=== PATIENT | male | born 1955 | race Caucasian/White ===

== ENCOUNTER → 2020-02-21 15:20 | Outpatient (CLI) | payer MEDICARE, SELFPAY ==
--- NOTE | 2020-02-21 15:29 | XR_ITS ---
PROCEDURE: XR LUMBAR SPINE MIN 4V CLINICAL INDICATION: DEGENERATIVE LUMBAR SPINAL STENOSIS COMPARISON: No exams were available for comparison FINDINGS: There is mild multilevel degenerative change with degenerative disc disease at the T12-L1 L1-L2 L3-L4 L4-5 and L5-S1. There is 2 mm anterolisthesis L3 on L4. There are small anterior osteophytes at multiple levels. There are facet arthritic changes at L4-L5 and S1. The SI joints have an unremarkable appearance. No lytic or blastic change. No acute fracture. There are mild osteoarthritic changes of the hips as well. Other findings:None. IMPRESSION: Degenerative changes as described above Dictated by: Justo Mayer MD 02/21/2020 16:35 Justo Mayre MD in [place] 02/21/2020 16:35
== END ==
PROVIDERS: PCP Family Medicine; Visit Provider Family Medicine
DX: M48.061 Spinal stenosis, lumbar region without neurogenic claudication (principal); M54.16 Radiculopathy, lumbar region; R29.898 Other symptoms and signs involving the musculoskeletal system
CPT/HCPCS: 72110

== ENCOUNTER → 2020-02-29 08:53 | Outpatient (CLI) | payer MEDICARE, BC, SELFPAY ==
--- NOTE | 2020-02-29 | MR_ITS ---
PROCEDURE: MR LUMBAR SPINE WO CON CLINICAL INDICATION: DDD WITH LBP PT C/O LBP WITH RT LEG SCIATICA AND WEAKNESS OF RT FOOT X 1 MONTH . PT DENIES INJURY OR TRAUMA AND HAS NO HX OF LUMBAR SURGERY. PT STATES SYMPTOMS ARE GETTING WORSE AND HE IS HAVING DIFFICULTY WALKING. COMPARISON: CR XR LUMBAR SPINE MIN 4V from 02/21/2020 TECHNIQUE: Standard multiplanar multiecho sequences are performed without contrast. 3-D MIP and myelographic images are also rendered and reviewed FINDINGS: There is normal alignment. The spinal cord ends the T12-L1 level. L1-L2: Mild degenerative disc disease with minimal bulging disc and mild facet and ligamentum hypertrophy L2-L3: Facet and ligamentum hypertrophy with mild left lateral recess narrowing and [id number] left foraminal narrowing. L3-L4: Degenerative disc disease with bulging disc slightly eccentric toward the left with severe facet and ligamentum hypertrophy and severe bilateral lateral recess narrowing slightly greater on the left. There is moderate right foraminal narrowing and moderate to severe left foraminal narrowing. There is canal stenosis. L4-5: Degenerative disc disease with bulging disc with minimal central disc protrusion with moderate to severe facet and ligamentum hypertrophy with moderate bilateral lateral recess and foraminal narrowing and borderline narrowing of the canal L5-S1: Degenerative disc disease with mild bulging disc with facet and ligamentum hypertrophy. No extruded herniated disc evident. There is increased T1 and increased T2 signal of the sacrum isointense on the STIR images which is felt to be due to yellow marrow replacement. IMPRESSION: 1. Multilevel lumbar spondylosis with degenerative disc disease bulging disc and facet and ligamentum hypertrophy. Please see above for detailed description at each level. 2. L3-L4: Degenerative disc disease with bulging disc slightly eccentric toward the left with severe facet and ligamentum hypertrophy and severe bilateral lateral recess narrowing slightly greater on the left. There is moderate right foraminal narrowing and moderate to severe left foraminal narrowing. There is canal stenosis. 3. L4-5: Degenerative disc disease with bulging disc with minimal central disc protrusion with moderate to severe facet and ligamentum hypertrophy with moderate bilateral lateral recess and foraminal narrowing and borderline narrowing of the canal Dictated by: Justo Mayer MD 03/01/2020 11:05 Justo Mayer MD in [place] 03/01/2020 11:05
--- NOTE | 2020-02-29 08:57 | US_ITS ---
PROCEDURE: US ABD. AORTA SCREENING CLINICAL INDICATION: AAA COMPARISON: No exams were available for comparison FINDINGS: No evidence of aortic aneurysm. Proximal common iliacs are unremarkable. IMPRESSION: No evidence of abdominal aortic aneurysm Dictated by: Justo Mayer MD 02/29/2020 15:56 Justo Mayer MD in [place] 02/29/2020 15:56
== END ==
PROVIDERS: PCP Family Medicine; Visit Provider Family Medicine
DX: Z13.6 Encounter for screening for cardiovascular disorders (principal); M48.061 Spinal stenosis, lumbar region without neurogenic claudication; M54.16 Radiculopathy, lumbar region
CPT/HCPCS: 72148; 76376; 76705

== ENCOUNTER 2020-03-12 13:22 | Emergency (ER) | payer MEDICARE, BC, SELFPAY ==
[2020-03-12 13:50] VITALS: BP 167/87; PULSE 85; RESP 14; TEMP 37.1; O2SAT 92; BMI 36.9
--- NOTE | 2020-03-12 14:11 | HMH.EDUTC ---
[facility] [place] Disposition Clinical Impression: Exposure to COVID-19 virus, Bronchitis Disposition: Home, Self-Care Condition on Discharge: Good Instructions: Preventing the Spread of Coronavirus Discharge Instructions Additional Instructions: Drink plenty of fluids. Take tylenol or ibuprofen for pain or fever. Take the medications as directed. Follow up with your regular doctor. GO TO THE ER FOR ANY WORSENING SYMPTOMS Prescriptions: Benzonatate [Tessalon Perle 100mg Cap] 100 mg PO TIDP PRN #30 cap PRN Reason: Cough Transmission Status: Received by [id number] Azithromycin [Z-Francois 250mg Tab*] 250 mg PO UD DOSE PK #6 tab Transmission Status: Received by [id number] Referrals: Sumanth Wilson MD [Primary Care Provider] - Medical Decision Making - Medical Records Medical records reviewed: No: I reviewed the patient's medical records. - Naveed Inquiry Pt receiving controlled substance: No Vital Signs: 03/12/20 13:50 03/12/20 14:15 Temperature 98.7 F 98.7 F Temperature Source Oral Pulse Rate 85 Pulse Rate [Right Brachial] 85 Respiratory Rate 14 14 Blood Pressure 167/87 H Blood Pressure [Right Arm] 167/87 H Blood Pressure Mean [Right Arm] 113 Blood Pressure Source [Right Arm] Automatic Cuff Blood Pressure Position [Right Arm] Sitting 02 Sat by Pulse Oximetry 92 L Oxygen Delivery Method Room Air Orders (Tests/Meds): ORDERS Category Date Time Status Covid-19 Nasal PCR Sendout [facility] Routine Lab 03/12/20 13:30 Received [facility] [place] HPI - General Stated complaint: congestion, wants covid test Time Seen by Provider: 03/12/20 14:11 Mode of Arrival: Ambulatory Source of Information: Patient Limitations: No Limitations Description of Symptoms (Recalled from Triage Doc. by RN): PATIENT REQUESTING COVID TEST D/T EXPOSURE; C/O CONGESTION HEENT Symptoms (Recalled from RN notes): Yes Resp Symptoms (Recalled from RN notes): No Skin Symptoms (Recalled from RN notes): No MS Symptoms (Recalled from RN notes): No Functional Status (Recalled from RN notes): WNL - History of Present Illness Provider Complaint: He c/o 2 days of sinus and chest congestion. He denies any fever/chills/body aches. - Related Data Previous Rx's Medication Instructions Recorded Azithromycin [Z-Francois 250mg Tab*] 250 mg PO UD DOSE PK #6 tab 03/12/20 Benzonatate [Tessalon Perle 100mg 100 mg PO TIDP PRN #30 cap 03/12/20 Cap] Allergies Allergy/AdvReac Type Severity Reaction Status Date / Time No Known Allergies Allergy Verified 03/12/20 14:08 - Worker's Comp Is this a Worker's Comp case?: No H History - Hepatitis A Screen Drug use history?: No High risk sexual behaviors?: No History of sexually transmitted infection?: No Currently employed?: No Childcare worker?: No Do you have indoor plumbing?: Yes Do you have electricity?: Yes Attestation statement:: This patient has been screened for Hepatitis A risk factors. I have reviewed the patient's past medical history: Yes - Social History Alcohol Intake: never Occupational Status: other ROS Obtained: Yes All systems reviewed & no additional complaints - Constitutional Constitutional: Reports system reviewed and no additional complaints, except as docu - Eyes Eyes: Reports system reviewed and no additional complaints, except as docu - ENT Ears, Nose, Mouth, and Throat: Reports system reviewed and no additional complaints, except as docu - Cardiovascular Cardiovascular: Reports system reviewed and no additional complaints, except as docu - Respiratory Respiratory: Yes system reviewed and no additional complaints, except as docu - Gastrointestinal Gastrointestingal: Reports: system reviewed and no additional complaints, except as docu Physical Exam - General General appearance: alert, in no apparent distress - Head Head exam: atraumatic, normocephalic, normal inspection - Eye Eye exam: Present: normal appe
[2020-03-12 14:15] VITALS: BP 167/87; PULSE 85; RESP 14; TEMP 37.1; O2SAT 92
[2020-03-13 14:09] LABS: Covid-19 Nasal PCR Sendout Lex POSITIVE
--- NOTE | 2020-03-13 14:46 | PC.NURSE ---
PATIENT NOTIFIED OF POSITIVE COVID TEST AT THIS TIME
== END 2020-03-12 14:22 | disposition home or self-care (01) ==
PROVIDERS: Emergency Provider Nurse Practitioner Family; PCP Family Medicine
DX: U07.1 COVID-19 (principal); E78.5 Hyperlipidemia, unspecified; I10 Essential (primary) hypertension
CPT/HCPCS: G0463; 99201; U0004

== ENCOUNTER 2020-09-27 13:50 | Outpatient (CLI) | payer MEDICARE, BC, SELFPAY ==
[2020-09-27 13:57] VITALS: BMI 35.2
[2020-09-27 14:15] LABS: Basophils # 0.1 K/mm3 (0-0.2); Basophils % 0.6 % (0.1-2.0); Eosinophils # 0.4 K/mm3 (0.0-0.4); Eosinophils % 3.2 % (0.1-12.0); Hematocrit 44.3 % (42.0-52.0); Hemoglobin 14.5 g/dL (14.1-18.0); Lymphocytes # 2.7 K/mm3 (0.7-4.5); Lymphocytes % 25.1 % (10-50); Mean Corpuscular HGB Conc 32.8 g/dL (31.8-35.4); Mean Corpuscular Hemoglobin 29.9 pg (27.0-31.2); Mean Corpuscular Volume 91.2 fl (80-94); Mean Platelet Volume 7.5 fl (7.4-10.4); Monocytes # 0.6 K/mm3 (0.1-1.0); Monocytes % 5.6 % (1.7-9.3); Neutrophils # 7.2 K/mm3 (1.8-7.8); Neutrophils % 65.6 % (37.0-80.0); Platelet Count 262 K/mm3 (142-424); Red Blood Count 4.86 M/mm3 (4.60-6.20); Red Cell Distribution Width 13.1 % (11.5-17.5); White Blood Count 10.9 K/mm3 (4.8-10.8)
[2020-09-27 14:35] VITALS: BP 196/96; PULSE 76; RESP 20
[2020-09-27 14:52] VITALS: BP 195/86; PULSE 76; RESP 20
[2020-09-27 15:11] LABS: Ferritin 613 ng/ml (17.9-464)
== END 2020-09-27 14:52 | disposition home or self-care (01) ==
LOC: INF 13:56
PROVIDERS: Visit Provider Family Medicine
DX: E83.110 Hereditary hemochromatosis (principal)
CPT/HCPCS: 82728; 85025; 99195

== ENCOUNTER 2020-10-04 13:52 | Outpatient (CLI) | payer MEDICARE, BC, SELFPAY ==
[2020-10-04 13:57] VITALS: BMI 35.2
[2020-10-04 14:25] LABS: Basophils # 0.1 K/mm3 (0-0.2); Basophils % 1.1 % (0.1-2.0); Eosinophils # 0.4 K/mm3 (0.0-0.4); Eosinophils % 3.4 % (0.1-12.0); Hematocrit 44.5 % (42.0-52.0); Hemoglobin 15.3 g/dL (14.1-18.0); Lymphocytes # 2.9 K/mm3 (0.7-4.5); Lymphocytes % 26.8 % (10-50); Mean Corpuscular HGB Conc 34.5 g/dL (31.8-35.4); Mean Corpuscular Hemoglobin 30.6 pg (27.0-31.2); Mean Corpuscular Volume 88.9 fl (80-94); Mean Platelet Volume 7.8 fl (7.4-10.4); Monocytes # 0.7 K/mm3 (0.1-1.0); Monocytes % 6.6 % (1.7-9.3); Neutrophils # 6.7 K/mm3 (1.8-7.8); Neutrophils % 62.2 % (37.0-80.0); Platelet Count 239 K/mm3 (142-424); Red Cell Distribution Width 13.6 % (11.5-17.5); White Blood Count 10.7 K/mm3 (4.8-10.8)
--- NOTE | 2020-10-04 14:33 | PC.NURSE ---
1411- lab at bedside drawing labs
--- NOTE | 2020-10-04 14:33 | PC.NURSE ---
1433- called lab for phlebotomy
[2020-10-04 14:37] VITALS: BP 169/96; PULSE 67; RESP 17; TEMP 36.8; O2SAT 97
[2020-10-04 15:06] VITALS: BP 167/84; PULSE 80
[2020-10-04 15:06] LABS: Ferritin 844 ng/ml (17.9-464)
== END 2020-10-04 15:10 | disposition home or self-care (01) ==
LOC: INF 13:52
PROVIDERS: Visit Provider Family Medicine
DX: E83.110 Hereditary hemochromatosis (principal)
CPT/HCPCS: 36415; 82728; 85025; 99195

== ENCOUNTER 2020-10-11 13:40 | Outpatient (CLI) | payer MEDICARE, BC, SELFPAY ==
[2020-10-11 13:47] VITALS: BMI 35.2
[2020-10-11 14:04] LABS: Basophils # 0.1 K/mm3 (0-0.2); Basophils % 0.7 % (0.1-2.0); Eosinophils # 0.3 K/mm3 (0.0-0.4); Eosinophils % 3.6 % (0.1-12.0); Hematocrit 41.2 % (42.0-52.0); Hemoglobin 13.9 g/dL (14.1-18.0); Lymphocytes # 2.5 K/mm3 (0.7-4.5); Lymphocytes % 25.9 % (10-50); Mean Corpuscular HGB Conc 33.8 g/dL (31.8-35.4); Mean Corpuscular Hemoglobin 30.2 pg (27.0-31.2); Mean Corpuscular Volume 89.2 fl (80-94); Mean Platelet Volume 7.6 fl (7.4-10.4); Monocytes # 0.6 K/mm3 (0.1-1.0); Monocytes % 6.1 % (1.7-9.3); Neutrophils # 6.1 K/mm3 (1.8-7.8); Neutrophils % 63.7 % (37.0-80.0); Platelet Count 224 K/mm3 (142-424); Red Blood Count 4.62 M/mm3 (4.60-6.20); Red Cell Distribution Width 13.1 % (11.5-17.5); White Blood Count 9.5 K/mm3 (4.8-10.8)
[2020-10-11 14:15] VITALS: BP 160/91; PULSE 74; RESP 17; O2SAT 97
[2020-10-11 14:54] LABS: Ferritin 726 ng/ml (17.9-464)
[2020-10-11 14:55] VITALS: BP 157/93; PULSE 76; RESP 17; O2SAT 97
== END 2020-10-11 14:59 | disposition home or self-care (01) ==
LOC: INF 13:46
PROVIDERS: PCP Family Medicine; Visit Provider Family Medicine
DX: E83.110 Hereditary hemochromatosis (principal)
CPT/HCPCS: 36415; 82728; 85025; 99195

== ENCOUNTER 2020-10-17 09:50 | Outpatient (CLI) | payer MEDICARE, BC, SELFPAY ==
[2020-10-17 09:53] VITALS: BMI 35.2
[2020-10-17 10:12] LABS: Hematocrit 41.5 % (42.0-52.0); Hemoglobin 14.6 g/dL (14.1-18.0)
[2020-10-17 10:58] LABS: Ferritin 841 ng/ml (17.9-464)
== END 2020-10-17 11:00 | disposition home or self-care (01) ==
LOC: INF 09:53
PROVIDERS: Visit Provider Family Medicine
DX: E83.110 Hereditary hemochromatosis (principal)
CPT/HCPCS: 36415; 82728; 85014; 85018; 99195

== ENCOUNTER 2020-10-24 12:25 | Outpatient (CLI) | payer MEDICARE, BC, SELFPAY ==
[2020-10-24 12:27] VITALS: BMI 35.2
[2020-10-24 12:47] LABS: Basophils # 0.1 K/mm3 (0-0.2); Basophils % 0.8 % (0.1-2.0); Eosinophils # 0.4 K/mm3 (0.0-0.4); Eosinophils % 3.1 % (0.1-12.0); Hematocrit 43.3 % (42.0-52.0); Hemoglobin 15.1 g/dL (14.1-18.0); Lymphocytes # 2.4 K/mm3 (0.7-4.5); Lymphocytes % 21.4 % (10-50); Mean Corpuscular HGB Conc 34.9 g/dL (31.8-35.4); Mean Corpuscular Hemoglobin 30.9 pg (27.0-31.2); Mean Corpuscular Volume 88.5 fl (80-94); Mean Platelet Volume 8.1 fl (7.4-10.4); Monocytes # 0.6 K/mm3 (0.1-1.0); Monocytes % 5.7 % (1.7-9.3); Neutrophils # 7.7 K/mm3 (1.8-7.8); Neutrophils % 69.1 % (37.0-80.0); Platelet Count 252 K/mm3 (142-424); Red Blood Count 4.89 M/mm3 (4.60-6.20); Red Cell Distribution Width 14.6 % (11.5-17.5); White Blood Count 11.2 K/mm3 (4.8-10.8)
[2020-10-24 13:45] LABS: Ferritin 765 ng/ml (17.9-464)
[2020-10-24 14:45] VITALS: BP 150/84; PULSE 111; RESP 18
== END 2020-10-24 14:45 | disposition home or self-care (01) ==
LOC: INF 12:29
PROVIDERS: Visit Provider Family Medicine
DX: E83.110 Hereditary hemochromatosis (principal)
CPT/HCPCS: 36415; 82728; 85025; 99195

== ENCOUNTER 2020-10-31 12:49 | Outpatient (CLI) | payer MEDICARE, BC, SELFPAY ==
[2020-10-31 12:52] VITALS: BMI 35.2
[2020-10-31 13:06] LABS: Basophils # 0.1 K/mm3 (0-0.2); Basophils % 0.8 % (0.1-2.0); Eosinophils # 0.3 K/mm3 (0.0-0.4); Eosinophils % 2.6 % (0.1-12.0); Hematocrit 42.3 % (42.0-52.0); Hemoglobin 14.8 g/dL (14.1-18.0); Lymphocytes # 2.6 K/mm3 (0.7-4.5); Mean Corpuscular Hemoglobin 30.9 pg (27.0-31.2); Mean Corpuscular Volume 88.4 fl (80-94); Mean Platelet Volume 8.2 fl (7.4-10.4); Monocytes # 0.8 K/mm3 (0.1-1.0); Monocytes % 7.1 % (1.7-9.3); Neutrophils # 7.1 K/mm3 (1.8-7.8); Neutrophils % 65.5 % (37.0-80.0); Platelet Count 276 K/mm3 (142-424); Red Blood Count 4.78 M/mm3 (4.60-6.20); Red Cell Distribution Width 14.6 % (11.5-17.5); White Blood Count 10.8 K/mm3 (4.8-10.8)
[2020-10-31 13:37] VITALS: BP 146/87; PULSE 98; RESP 18; O2SAT 97
[2020-10-31 13:57] LABS: Ferritin 572 ng/ml (17.9-464)
[2020-10-31 14:09] VITALS: BP 154/85; PULSE 97; RESP 18
== END 2020-10-31 14:09 | disposition home or self-care (01) ==
LOC: INF 12:49
PROVIDERS: Visit Provider Family Medicine
DX: E83.110 Hereditary hemochromatosis (principal)
CPT/HCPCS: 82728; 85025; 99195

== ENCOUNTER 2020-11-07 12:49 | Outpatient (CLI) | payer MEDICARE, BC, SELFPAY ==
[2020-11-07 12:59] VITALS: BMI 35.2
[2020-11-07 13:18] LABS: Basophils # 0.1 K/mm3 (0-0.2); Eosinophils # 0.3 K/mm3 (0.0-0.4); Eosinophils % 3.3 % (0.1-12.0); Hematocrit 39.6 % (42.0-52.0); Hemoglobin 13.8 g/dL (14.1-18.0); Lymphocytes # 2.8 K/mm3 (0.7-4.5); Lymphocytes % 30.3 % (10-50); Mean Corpuscular HGB Conc 34.9 g/dL (31.8-35.4); Mean Corpuscular Hemoglobin 31.1 pg (27.0-31.2); Mean Corpuscular Volume 89.3 fl (80-94); Mean Platelet Volume 8.4 fl (7.4-10.4); Monocytes # 0.5 K/mm3 (0.1-1.0); Monocytes % 5.1 % (1.7-9.3); Neutrophils # 5.5 K/mm3 (1.8-7.8); Neutrophils % 60.2 % (37.0-80.0); Platelet Count 270 K/mm3 (142-424); Red Blood Count 4.44 M/mm3 (4.60-6.20); White Blood Count 9.1 K/mm3 (4.8-10.8)
[2020-11-07 13:50] VITALS: BP 174/62; PULSE 77; RESP 18
[2020-11-07 14:09] LABS: Ferritin 510 ng/ml (17.9-464)
[2020-11-07 14:12] VITALS: BP 157/77; PULSE 79; RESP 18
== END 2020-11-07 14:12 | disposition home or self-care (01) ==
LOC: INF 12:49
PROVIDERS: Visit Provider Family Medicine
DX: E83.110 Hereditary hemochromatosis (principal)
CPT/HCPCS: 36415; 82728; 85025; 99195

== ENCOUNTER 2020-11-14 12:44 | Outpatient (CLI) | payer MEDICARE, BC, SELFPAY ==
[2020-11-14 12:45] VITALS: BMI 35.2
[2020-11-14 13:08] LABS: Basophils # 0.2 K/mm3 (0-0.2); Basophils % 1.5 % (0.1-2.0); Eosinophils # 0.3 K/mm3 (0.0-0.4); Eosinophils % 2.9 % (0.1-12.0); Hematocrit 38.6 % (42.0-52.0); Hemoglobin 13.6 g/dL (14.1-18.0); Lymphocytes # 2.6 K/mm3 (0.7-4.5); Lymphocytes % 25.4 % (10-50); Mean Corpuscular HGB Conc 35.2 g/dL (31.8-35.4); Mean Corpuscular Hemoglobin 31.2 pg (27.0-31.2); Mean Corpuscular Volume 88.8 fl (80-94); Mean Platelet Volume 7.6 fl (7.4-10.4); Monocytes # 0.6 K/mm3 (0.1-1.0); Monocytes % 6.1 % (1.7-9.3); Neutrophils # 6.7 K/mm3 (1.8-7.8); Neutrophils % 64.1 % (37.0-80.0); Platelet Count 295 K/mm3 (142-424); Red Blood Count 4.35 M/mm3 (4.60-6.20); Red Cell Distribution Width 13.8 % (11.5-17.5); White Blood Count 10.4 K/mm3 (4.8-10.8)
[2020-11-14 13:33] VITALS: BP 162/79; PULSE 81; RESP 18; TEMP 36.8; O2SAT 97
[2020-11-14 13:48] VITALS: BP 171/86; PULSE 86; RESP 18; O2SAT 97
[2020-11-14 13:57] LABS: Ferritin 509 ng/ml (17.9-464)
== END 2020-11-14 13:48 | disposition home or self-care (01) ==
LOC: INF 12:44
PROVIDERS: Visit Provider Family Medicine
DX: E83.110 Hereditary hemochromatosis (principal)
CPT/HCPCS: 36415; 82728; 85025; 99195

== ENCOUNTER 2020-11-21 12:40 | Outpatient (CLI) | payer MEDICARE, BC, SELFPAY ==
[2020-11-21 12:47] VITALS: BMI 35.2
[2020-11-21 13:45] LABS: Basophils # 0.1 K/mm3 (0-0.2); Basophils % 0.9 % (0.1-2.0); Eosinophils # 0.3 K/mm3 (0.0-0.4); Eosinophils % 2.8 % (0.1-12.0); Hematocrit 40.1 % (42.0-52.0); Hemoglobin 13.7 g/dL (14.1-18.0); Lymphocytes # 2.7 K/mm3 (0.7-4.5); Lymphocytes % 25.3 % (10-50); Mean Corpuscular HGB Conc 34.2 g/dL (31.8-35.4); Mean Corpuscular Volume 90.4 fl (80-94); Monocytes # 0.6 K/mm3 (0.1-1.0); Monocytes % 5.2 % (1.7-9.3); Neutrophils % 65.8 % (37.0-80.0); Platelet Count 258 K/mm3 (142-424); Red Blood Count 4.44 M/mm3 (4.60-6.20); Red Cell Distribution Width 14.1 % (11.5-17.5); White Blood Count 10.7 K/mm3 (4.8-10.8)
[2020-11-21 14:12] LABS: Ferritin 477 ng/ml (17.9-464)
== END 2020-11-21 14:30 | disposition home or self-care (01) ==
LOC: INF 12:45
PROVIDERS: Visit Provider Family Medicine
DX: E83.110 Hereditary hemochromatosis (principal)
CPT/HCPCS: 36415; 82728; 85025; 99195

== ENCOUNTER 2020-11-28 12:47 | Outpatient (CLI) | payer MEDICARE, BC, SELFPAY ==
[2020-11-28 12:47] VITALS: BMI 35.2
[2020-11-28 13:14] LABS: Basophils # 0.1 K/mm3 (0-0.2); Basophils % 0.8 % (0.1-2.0); Eosinophils # 0.4 K/mm3 (0.0-0.4); Eosinophils % 3.9 % (0.1-12.0); Hematocrit 39.3 % (42.0-52.0); Hemoglobin 13.8 g/dL (14.1-18.0); Lymphocytes # 2.7 K/mm3 (0.7-4.5); Lymphocytes % 26.8 % (10-50); Mean Corpuscular Hemoglobin 30.9 pg (27.0-31.2); Mean Corpuscular Volume 88.2 fl (80-94); Mean Platelet Volume 7.9 fl (7.4-10.4); Monocytes # 0.5 K/mm3 (0.1-1.0); Monocytes % 5.2 % (1.7-9.3); Neutrophils # 6.3 K/mm3 (1.8-7.8); Neutrophils % 63.3 % (37.0-80.0); Platelet Count 255 K/mm3 (142-424); Red Blood Count 4.45 M/mm3 (4.60-6.20); Red Cell Distribution Width 14.2 % (11.5-17.5)
[2020-11-28 13:58] LABS: Ferritin 358 ng/ml (17.9-464)
== END 2020-11-28 14:06 | disposition home or self-care (01) ==
LOC: INF 12:47
PROVIDERS: Visit Provider Family Medicine
DX: E83.110 Hereditary hemochromatosis (principal)
CPT/HCPCS: 82728; 85025; 99195

== ENCOUNTER 2020-12-05 12:44 | Outpatient (CLI) | payer MEDICARE, BC, SELFPAY ==
[2020-12-05 12:52] VITALS: BMI 35.2
[2020-12-05 13:05] LABS: Basophils # 0.1 K/mm3 (0-0.2); Basophils % 0.9 % (0.1-2.0); Eosinophils # 0.3 K/mm3 (0.0-0.4); Eosinophils % 3.1 % (0.1-12.0); Hematocrit 42.9 % (42.0-52.0); Hemoglobin 14.7 g/dL (14.1-18.0); Lymphocytes # 2.5 K/mm3 (0.7-4.5); Lymphocytes % 25.7 % (10-50); Mean Corpuscular HGB Conc 34.1 g/dL (31.8-35.4); Mean Corpuscular Hemoglobin 31.5 pg (27.0-31.2); Mean Corpuscular Volume 92.2 fl (80-94); Mean Platelet Volume 8.4 fl (7.4-10.4); Monocytes # 0.7 K/mm3 (0.1-1.0); Monocytes % 6.9 % (1.7-9.3); Neutrophils # 6.1 K/mm3 (1.8-7.8); Neutrophils % 63.5 % (37.0-80.0); Platelet Count 297 K/mm3 (142-424); Red Blood Count 4.65 M/mm3 (4.60-6.20); Red Cell Distribution Width 14.4 % (11.5-17.5); White Blood Count 9.7 K/mm3 (4.8-10.8)
[2020-12-05 13:26] VITALS: BP 165/85; PULSE 80; RESP 18; O2SAT 95
[2020-12-05 13:51] LABS: Ferritin 346 ng/ml (17.9-464)
[2020-12-05 13:55] VITALS: BP 167/84; PULSE 84; RESP 18
== END 2020-12-05 13:55 | disposition home or self-care (01) ==
LOC: INF 12:46
PROVIDERS: PCP Family Medicine; Visit Provider Family Medicine
DX: E83.110 Hereditary hemochromatosis (principal)
CPT/HCPCS: 82728; 85025; 99195

== ENCOUNTER 2020-12-12 12:31 | Outpatient (CLI) | payer MEDICARE, BC, SELFPAY ==
[2020-12-12 12:35] VITALS: BMI 35.2
--- NOTE | 2020-12-12 12:54 | PC.NURSE ---
1245 - BLOOD DRAWN FROM RIGHT HAND USING BUTTERFLY NEEDLE TO CHECK CBC AND FERRITIN LEVEL.
[2020-12-12 12:55] LABS: Basophils # 0.1 K/mm3 (0-0.2); Basophils % 0.9 % (0.1-2.0); Eosinophils # 0.3 K/mm3 (0.0-0.4); Eosinophils % 3.3 % (0.1-12.0); Hemoglobin 14.3 g/dL (14.1-18.0); Lymphocytes # 2.5 K/mm3 (0.7-4.5); Mean Corpuscular HGB Conc 34.1 g/dL (31.8-35.4); Mean Corpuscular Hemoglobin 31.6 pg (27.0-31.2); Mean Corpuscular Volume 92.8 fl (80-94); Mean Platelet Volume 8.7 fl (7.4-10.4); Monocytes # 0.5 K/mm3 (0.1-1.0); Monocytes % 5.2 % (1.7-9.3); Neutrophils # 5.9 K/mm3 (1.8-7.8); Neutrophils % 63.5 % (37.0-80.0); Platelet Count 276 K/mm3 (142-424); Red Blood Count 4.52 M/mm3 (4.60-6.20); Red Cell Distribution Width 14.2 % (11.5-17.5); White Blood Count 9.3 K/mm3 (4.8-10.8)
[2020-12-12 13:35] LABS: Ferritin 288 ng/ml (17.9-464)
== END 2020-12-12 13:50 | disposition home or self-care (01) ==
LOC: INF 12:32
PROVIDERS: PCP Family Medicine; Visit Provider Family Medicine
DX: E83.110 Hereditary hemochromatosis (principal)
CPT/HCPCS: 82728; 85025; 99195

== ENCOUNTER 2020-12-19 12:34 | Outpatient (CLI) | payer MEDICARE, BC, SELFPAY ==
[2020-12-19 12:40] VITALS: BMI 35.2
[2020-12-19 13:06] LABS: Basophils # 0.1 K/mm3 (0-0.2); Basophils % 1.3 % (0.1-2.0); Eosinophils # 0.3 K/mm3 (0.0-0.4); Eosinophils % 3.6 % (0.1-12.0); Hematocrit 45.3 % (42.0-52.0); Hemoglobin 14.8 g/dL (14.1-18.0); Lymphocytes # 2.3 K/mm3 (0.7-4.5); Lymphocytes % 24.7 % (10-50); Mean Corpuscular HGB Conc 32.8 g/dL (31.8-35.4); Mean Corpuscular Hemoglobin 31.4 pg (27.0-31.2); Mean Corpuscular Volume 95.9 fl (80-94); Mean Platelet Volume 8.4 fl (7.4-10.4); Monocytes # 0.6 K/mm3 (0.1-1.0); Neutrophils # 6.1 K/mm3 (1.8-7.8); Neutrophils % 64.6 % (37.0-80.0); Platelet Count 296 K/mm3 (142-424); Red Blood Count 4.72 M/mm3 (4.60-6.20); Red Cell Distribution Width 14.3 % (11.5-17.5); White Blood Count 9.5 K/mm3 (4.8-10.8)
[2020-12-19 13:35] VITALS: BP 175/86; PULSE 77; RESP 18
[2020-12-19 13:55] VITALS: BP 153/84; PULSE 71; RESP 18
[2020-12-19 13:55] LABS: Ferritin 287 ng/ml (17.9-464)
== END 2020-12-19 13:55 | disposition home or self-care (01) ==
LOC: INF 12:35
PROVIDERS: PCP Family Medicine; Visit Provider Family Medicine
DX: E83.110 Hereditary hemochromatosis (principal)
CPT/HCPCS: 82728; 85025; 99195

== ENCOUNTER 2020-12-26 12:39 | Outpatient (CLI) | payer MEDICARE, BC, SELFPAY ==
[2020-12-26 12:45] VITALS: BMI 35.2
[2020-12-26 12:59] LABS: Basophils # 0.1 K/mm3 (0-0.2); Basophils % 0.9 % (0.1-2.0); Eosinophils # 0.4 K/mm3 (0.0-0.4); Eosinophils % 3.6 % (0.1-12.0); Hematocrit 45.1 % (42.0-52.0); Hemoglobin 15.2 g/dL (14.1-18.0); Lymphocytes # 2.5 K/mm3 (0.7-4.5); Lymphocytes % 22.6 % (10-50); Mean Corpuscular HGB Conc 33.7 g/dL (31.8-35.4); Mean Corpuscular Hemoglobin 31.7 pg (27.0-31.2); Mean Corpuscular Volume 94.2 fl (80-94); Mean Platelet Volume 8.1 fl (7.4-10.4); Monocytes # 0.7 K/mm3 (0.1-1.0); Monocytes % 6.2 % (1.7-9.3); Neutrophils # 7.4 K/mm3 (1.8-7.8); Neutrophils % 66.7 % (37.0-80.0); Platelet Count 273 K/mm3 (142-424); Red Blood Count 4.79 M/mm3 (4.60-6.20); Red Cell Distribution Width 13.3 % (11.5-17.5); White Blood Count 11.1 K/mm3 (4.8-10.8)
[2020-12-26 13:13] VITALS: BP 163/88; PULSE 78; RESP 18
[2020-12-26 13:35] VITALS: BP 115/79; PULSE 86; RESP 18
[2020-12-26 13:42] LABS: Ferritin 259 ng/ml (17.9-464)
== END 2020-12-26 13:35 | disposition home or self-care (01) ==
LOC: INF 12:41
PROVIDERS: PCP Family Medicine; Visit Provider Family Medicine
DX: E83.110 Hereditary hemochromatosis (principal)
CPT/HCPCS: 82728; 85025; 99195

== ENCOUNTER 2021-01-02 12:39 | Outpatient (CLI) | payer MEDICARE, BC, SELFPAY ==
[2021-01-02 12:47] VITALS: BMI 35.2
[2021-01-02 13:53] LABS: Ferritin 222 ng/ml (17.9-464)
--- NOTE | 2021-01-02 13:53 | PC.NURSE ---
1255 - BLOOD DRAWN FROM RIGHT HAND USING BUTTERFLY NEEDLE. FERRITIN AND CBC ORDERED TO DETERMINE IF THERAPEUTIC PHLEBOTOMY NEEDED. FERRITIN OBTAINED BUT BLEEDING STOPPED BEFORE OBTAINING ENOUGH BLOOD FOR CBC. PT REFUSING TO BE STUCK AGAIN FOR CBC. THERAPEUTIC PHLEBOTOMY TO BE DONE BASED ON FERRITIN LEVEL ONLY TODAY.
== END 2021-01-02 14:25 | disposition home or self-care (01) ==
LOC: INF 12:41
PROVIDERS: PCP Family Medicine; Visit Provider Family Medicine
DX: E83.110 Hereditary hemochromatosis (principal)
CPT/HCPCS: 82728; 99195

== ENCOUNTER 2021-01-09 12:36 | Outpatient (CLI) | payer MEDICARE, BC, SELFPAY ==
[2021-01-09 12:40] VITALS: BMI 34.4
[2021-01-09 12:56] LABS: Basophils # 0.1 K/mm3 (0-0.2); Basophils % 0.7 % (0.1-2.0); Eosinophils # 0.3 K/mm3 (0.0-0.4); Eosinophils % 3.2 % (0.1-12.0); Hemoglobin 15.3 g/dL (14.1-18.0); Lymphocytes # 2.7 K/mm3 (0.7-4.5); Lymphocytes % 27.6 % (10-50); Mean Corpuscular Hemoglobin 31.6 pg (27.0-31.2); Mean Platelet Volume 7.8 fl (7.4-10.4); Monocytes # 0.6 K/mm3 (0.1-1.0); Monocytes % 6.1 % (1.7-9.3); Neutrophils # 6.1 K/mm3 (1.8-7.8); Neutrophils % 62.5 % (37.0-80.0); Platelet Count 276 K/mm3 (142-424); Red Blood Count 4.84 M/mm3 (4.60-6.20); Red Cell Distribution Width 13.4 % (11.5-17.5); White Blood Count 9.7 K/mm3 (4.8-10.8)
--- NOTE | 2021-01-09 13:00 | PC.NURSE ---
Addendum entered by Trang Gaspar RN 01/09/21 16:08: phlebotomy done by jad pruitt, laboratory technologist Original Note: 1300-pt here for therapeutic phlebotomy if hgb > 12 or ferritin >50; hgb 15.3 pt to receive phlebotomy to have 500ml drawn off
[2021-01-09 13:30] VITALS: BP 152/85; PULSE 76; RESP 18
[2021-01-09 13:42] LABS: Ferritin 182 ng/ml (17.9-464)
== END 2021-01-09 13:30 | disposition home or self-care (01) ==
LOC: INF 12:38
PROVIDERS: PCP Family Medicine; Visit Provider Family Medicine
DX: E83.110 Hereditary hemochromatosis (principal)
CPT/HCPCS: 82728; 85025; 99195

== ENCOUNTER 2021-01-16 12:36 | Outpatient (CLI) | payer MEDICARE, BC, SELFPAY ==
[2021-01-16 12:41] VITALS: BMI 35.2
[2021-01-16 13:07] LABS: Basophils # 0.1 K/mm3 (0-0.2); Basophils % 0.9 % (0.1-2.0); Eosinophils # 0.2 K/mm3 (0.0-0.4); Eosinophils % 2.5 % (0.1-12.0); Hematocrit 43.3 % (42.0-52.0); Hemoglobin 14.9 g/dL (14.1-18.0); Lymphocytes # 2.6 K/mm3 (0.7-4.5); Lymphocytes % 27.2 % (10-50); Mean Corpuscular HGB Conc 34.5 g/dL (31.8-35.4); Mean Corpuscular Hemoglobin 31.8 pg (27.0-31.2); Mean Corpuscular Volume 92.3 fl (80-94); Mean Platelet Volume 9.2 fl (7.4-10.4); Monocytes # 0.6 K/mm3 (0.1-1.0); Monocytes % 5.8 % (1.7-9.3); Neutrophils # 6.2 K/mm3 (1.8-7.8); Neutrophils % 63.6 % (37.0-80.0); Platelet Count 279 K/mm3 (142-424); Red Blood Count 4.69 M/mm3 (4.60-6.20); Red Cell Distribution Width 13.9 % (11.5-17.5); White Blood Count 9.7 K/mm3 (4.8-10.8)
[2021-01-16 14:01] LABS: Ferritin 181 ng/ml (17.9-464)
== END 2021-01-16 13:55 | disposition home or self-care (01) ==
LOC: INF 12:36
PROVIDERS: PCP Family Medicine; Visit Provider Family Medicine
DX: E83.110 Hereditary hemochromatosis (principal)
CPT/HCPCS: 36415; 82728; 85025; 99195

== ENCOUNTER 2021-01-23 12:37 | Outpatient (CLI) | payer MEDICARE, BC, SELFPAY ==
[2021-01-23 12:43] VITALS: BMI 35.2
[2021-01-23 12:55] LABS: Basophils # 0.1 K/mm3 (0-0.2); Basophils % 0.8 % (0.1-2.0); Eosinophils # 0.3 K/mm3 (0.0-0.4); Eosinophils % 2.5 % (0.1-12.0); Hemoglobin 15.9 g/dL (14.1-18.0); Lymphocytes # 2.5 K/mm3 (0.7-4.5); Lymphocytes % 22.7 % (10-50); Mean Corpuscular HGB Conc 34.7 g/dL (31.8-35.4); Mean Corpuscular Hemoglobin 32.3 pg (27.0-31.2); Mean Corpuscular Volume 93.1 fl (80-94); Mean Platelet Volume 7.6 fl (7.4-10.4); Monocytes # 0.7 K/mm3 (0.1-1.0); Neutrophils # 7.4 K/mm3 (1.8-7.8); Neutrophils % 68.1 % (37.0-80.0); Platelet Count 289 K/mm3 (142-424); Red Blood Count 4.94 M/mm3 (4.60-6.20); Red Cell Distribution Width 13.2 % (11.5-17.5); White Blood Count 10.9 K/mm3 (4.8-10.8)
[2021-01-23 13:15] VITALS: BP 171/80; PULSE 89; RESP 18
[2021-01-23 13:33] VITALS: BP 150/85; PULSE 94; RESP 18
[2021-01-23 13:39] LABS: Ferritin 167 ng/ml (17.9-464)
== END 2021-01-23 13:33 | disposition home or self-care (01) ==
LOC: INF 12:38
PROVIDERS: PCP Family Medicine; Visit Provider Family Medicine
DX: E83.110 Hereditary hemochromatosis (principal)
CPT/HCPCS: 82728; 85025; 99195

== ENCOUNTER 2021-01-30 12:39 | Outpatient (CLI) | payer MEDICARE, BC, SELFPAY ==
[2021-01-30 12:44] VITALS: BMI 35.2
[2021-01-30 13:00] LABS: Basophils # 0.1 K/mm3 (0-0.2); Basophils % 0.8 % (0.1-2.0); Eosinophils # 0.3 K/mm3 (0.0-0.4); Eosinophils % 2.8 % (0.1-12.0); Hematocrit 45.3 % (42.0-52.0); Hemoglobin 14.8 g/dL (14.1-18.0); Lymphocytes # 2.6 K/mm3 (0.7-4.5); Lymphocytes % 26.3 % (10-50); Mean Corpuscular HGB Conc 32.7 g/dL (31.8-35.4); Mean Corpuscular Hemoglobin 30.9 pg (27.0-31.2); Mean Corpuscular Volume 94.6 fl (80-94); Mean Platelet Volume 7.9 fl (7.4-10.4); Monocytes # 0.6 K/mm3 (0.1-1.0); Monocytes % 6.5 % (1.7-9.3); Neutrophils # 6.2 K/mm3 (1.8-7.8); Neutrophils % 63.5 % (37.0-80.0); Platelet Count 312 K/mm3 (142-424); Red Blood Count 4.79 M/mm3 (4.60-6.20); Red Cell Distribution Width 13.8 % (11.5-17.5); White Blood Count 9.8 K/mm3 (4.8-10.8)
[2021-01-30 13:05] VITALS: BP 181/88; PULSE 80; RESP 18
[2021-01-30 13:25] VITALS: BP 182/92; PULSE 86; RESP 18
[2021-01-30 13:49] LABS: Ferritin 149 ng/ml (17.9-464)
== END 2021-01-30 13:30 | disposition home or self-care (01) ==
LOC: INF 12:40
PROVIDERS: PCP Family Medicine; Visit Provider Family Medicine
DX: E83.110 Hereditary hemochromatosis (principal)
CPT/HCPCS: 82728; 85025; 99195

== ENCOUNTER 2021-02-06 12:44 | Outpatient (CLI) | payer MEDICARE, BC, SELFPAY ==
[2021-02-06 12:47] VITALS: BMI 35.2
[2021-02-06 13:03] LABS: Basophils # 0.1 K/mm3 (0-0.2); Eosinophils # 0.4 K/mm3 (0.0-0.4); Eosinophils % 3.4 % (0.1-12.0); Hematocrit 47.1 % (42.0-52.0); Hemoglobin 15.6 g/dL (14.1-18.0); Lymphocytes # 2.7 K/mm3 (0.7-4.5); Lymphocytes % 22.7 % (10-50); Mean Corpuscular Hemoglobin 31.4 pg (27.0-31.2); Mean Platelet Volume 7.6 fl (7.4-10.4); Monocytes # 0.7 K/mm3 (0.1-1.0); Monocytes % 5.9 % (1.7-9.3); Neutrophils # 7.9 K/mm3 (1.8-7.8); Neutrophils % 67.1 % (37.0-80.0); Platelet Count 302 K/mm3 (142-424); Red Blood Count 4.96 M/mm3 (4.60-6.20); White Blood Count 11.7 K/mm3 (4.8-10.8)
[2021-02-06 13:50] VITALS: BP 160/72; PULSE 83; RESP 18
[2021-02-06 14:16] VITALS: BP 180/82; PULSE 94
[2021-02-06 14:47] LABS: Ferritin 85.9 ng/ml (17.9-464)
== END 2021-02-06 14:16 | disposition home or self-care (01) ==
LOC: INF 12:45
PROVIDERS: PCP Family Medicine; Visit Provider Family Medicine
DX: E83.110 Hereditary hemochromatosis (principal)
CPT/HCPCS: 82728; 85025; 99195

== ENCOUNTER 2021-02-13 12:32 | Outpatient (CLI) | payer MEDICARE, BC, SELFPAY ==
[2021-02-13 12:44] VITALS: BMI 35.2
[2021-02-13 13:05] LABS: Basophils # 0.1 K/mm3 (0-0.2); Basophils % 0.9 % (0.1-2.0); Eosinophils # 0.3 K/mm3 (0.0-0.4); Eosinophils % 3.4 % (0.1-12.0); Hematocrit 45.3 % (42.0-52.0); Hemoglobin 15.5 g/dL (14.1-18.0); Lymphocytes # 2.1 K/mm3 (0.7-4.5); Lymphocytes % 22.6 % (10-50); Mean Corpuscular HGB Conc 34.1 g/dL (31.8-35.4); Mean Corpuscular Hemoglobin 31.9 pg (27.0-31.2); Mean Corpuscular Volume 93.3 fl (80-94); Mean Platelet Volume 7.8 fl (7.4-10.4); Monocytes # 0.7 K/mm3 (0.1-1.0); Neutrophils # 6.2 K/mm3 (1.8-7.8); Platelet Count 295 K/mm3 (142-424); Red Blood Count 4.86 M/mm3 (4.60-6.20); Red Cell Distribution Width 13.9 % (11.5-17.5); White Blood Count 9.3 K/mm3 (4.8-10.8)
[2021-02-13 13:23] VITALS: BP 147/73; PULSE 74; RESP 18
[2021-02-13 13:50] VITALS: BP 127/52; PULSE 68; RESP 18
[2021-02-13 13:56] LABS: Ferritin 75.7 ng/ml (17.9-464)
== END 2021-02-13 13:50 | disposition home or self-care (01) ==
LOC: INF 12:34
PROVIDERS: PCP Family Medicine; Visit Provider Family Medicine
DX: E83.110 Hereditary hemochromatosis (principal)
CPT/HCPCS: 82728; 85025; 99195

== ENCOUNTER 2021-02-20 12:22 | Outpatient (CLI) | payer MEDICARE, BC, SELFPAY ==
[2021-02-20 12:27] VITALS: BMI 35.2
[2021-02-20 12:56] LABS: Basophils # 0.2 K/mm3 (0-0.2); Basophils % 1.5 % (0.1-2.0); Eosinophils # 0.3 K/mm3 (0.0-0.4); Eosinophils % 2.2 % (0.1-12.0); Hematocrit 42.9 % (42.0-52.0); Hemoglobin 14.6 g/dL (14.1-18.0); Lymphocytes # 2.6 K/mm3 (0.7-4.5); Lymphocytes % 22.6 % (10-50); Mean Corpuscular HGB Conc 34.1 g/dL (31.8-35.4); Mean Corpuscular Hemoglobin 30.9 pg (27.0-31.2); Mean Corpuscular Volume 90.4 fl (80-94); Mean Platelet Volume 8.1 fl (7.4-10.4); Monocytes # 0.8 K/mm3 (0.1-1.0); Monocytes % 6.7 % (1.7-9.3); Neutrophils # 7.6 K/mm3 (1.8-7.8); Neutrophils % 67.1 % (37.0-80.0); Platelet Count 348 K/mm3 (142-424); Red Blood Count 4.74 M/mm3 (4.60-6.20); Red Cell Distribution Width 14.4 % (11.5-17.5); White Blood Count 11.3 K/mm3 (4.8-10.8)
[2021-02-20 13:20] VITALS: BP 149/83; PULSE 85; RESP 18
[2021-02-20 13:45] VITALS: BP 148/76; PULSE 86; RESP 18
[2021-02-20 13:45] LABS: Ferritin 42.5 ng/ml (17.9-464)
== END 2021-02-20 13:45 | disposition home or self-care (01) ==
LOC: INF 12:23
PROVIDERS: PCP Family Medicine; Visit Provider Family Medicine
DX: E83.110 Hereditary hemochromatosis (principal)
CPT/HCPCS: 82728; 85025; 99195

== ENCOUNTER 2021-03-06 11:55 | Outpatient (CLI) | payer MEDICARE, BC, SELFPAY ==
[2021-03-06 12:02] VITALS: BMI 35.2
[2021-03-06 12:20] LABS: Basophils # 0.1 K/mm3 (0-0.2); Eosinophils # 0.3 K/mm3 (0.0-0.4); Eosinophils % 3.3 % (0.1-12.0); Lymphocytes # 2.2 K/mm3 (0.7-4.5); Mean Corpuscular HGB Conc 34.1 g/dL (31.8-35.4); Mean Corpuscular Hemoglobin 30.7 pg (27.0-31.2); Monocytes # 0.5 K/mm3 (0.1-1.0); Monocytes % 6.2 % (1.7-9.3); Neutrophils # 5.6 K/mm3 (1.8-7.8); Neutrophils % 64.5 % (37.0-80.0); Platelet Count 341 K/mm3 (142-424); Red Blood Count 4.89 M/mm3 (4.60-6.20); Red Cell Distribution Width 13.6 % (11.5-17.5); White Blood Count 8.7 K/mm3 (4.8-10.8)
[2021-03-06 13:03] LABS: Ferritin 31.3 ng/ml (17.9-464)
--- NOTE | 2021-03-06 13:15 | PC.NURSE ---
1315- pt ferritin resulted. pt called and informed that he did not qualify to return for therapeutic phlebotomy.
== END 2021-03-06 12:12 | disposition home or self-care (01) ==
LOC: INF 11:56
PROVIDERS: PCP Family Medicine; Visit Provider Family Medicine
DX: E83.110 Hereditary hemochromatosis (principal)
CPT/HCPCS: 82728; 85025

== ENCOUNTER 2021-03-20 10:32 | Outpatient (CLI) | payer MEDICARE, BC, SELFPAY ==
[2021-03-20 10:37] VITALS: BMI 35.2
[2021-03-20 10:51] LABS: Basophils # 0.1 K/mm3 (0-0.2); Basophils % 0.9 % (0.1-2.0); Eosinophils # 0.4 K/mm3 (0.0-0.4); Eosinophils % 3.5 % (0.1-12.0); Hematocrit 45.7 % (42.0-52.0); Lymphocytes # 2.2 K/mm3 (0.7-4.5); Lymphocytes % 20.7 % (10-50); Mean Corpuscular HGB Conc 35.1 g/dL (31.8-35.4); Mean Corpuscular Hemoglobin 30.7 pg (27.0-31.2); Mean Corpuscular Volume 87.5 fl (80-94); Monocytes # 0.6 K/mm3 (0.1-1.0); Monocytes % 5.3 % (1.7-9.3); Neutrophils # 7.5 K/mm3 (1.8-7.8); Neutrophils % 69.7 % (37.0-80.0); Platelet Count 291 K/mm3 (142-424); Red Blood Count 5.23 M/mm3 (4.60-6.20); Red Cell Distribution Width 13.3 % (11.5-17.5); White Blood Count 10.8 K/mm3 (4.8-10.8)
[2021-03-20 11:50] LABS: Ferritin 40.5 ng/ml (17.9-464)
--- NOTE | 2021-03-20 12:05 | PC.NURSE ---
1205-pt here for lab check for possible therapeutic phlebotomy if ferritin > 50; today pt's ferritin is 40.5. pt will not need to have phlebotomy today. per pt request will notify md about changing order to once monthly for lab check.
== END 2021-03-20 12:05 | disposition home or self-care (01) ==
LOC: INF 10:33
PROVIDERS: PCP Family Medicine; Visit Provider Family Medicine
DX: E83.110 Hereditary hemochromatosis (principal)
CPT/HCPCS: 82728; 85025

== ENCOUNTER 2021-06-19 12:35 | Outpatient (CLI) | payer MEDICARE, BC, SELFPAY ==
[2021-06-19 12:47] VITALS: BMI 35.2
[2021-06-19 13:12] LABS: Basophils # 0.1 K/mm3 (0-0.2); Basophils % 1.3 % (0.1-2.0); Eosinophils # 0.3 K/mm3 (0.0-0.4); Eosinophils % 3.1 % (0.1-12.0); Hematocrit 48.9 % (42.0-52.0); Hemoglobin 16.5 g/dL (14.1-18.0); Lymphocytes # 2.7 K/mm3 (0.7-4.5); Lymphocytes % 24.5 % (10-50); Mean Corpuscular HGB Conc 33.8 g/dL (31.8-35.4); Mean Corpuscular Hemoglobin 30.4 pg (27.0-31.2); Mean Corpuscular Volume 89.9 fl (80-94); Mean Platelet Volume 8.4 fl (7.4-10.4); Monocytes # 0.6 K/mm3 (0.1-1.0); Monocytes % 5.5 % (1.7-9.3); Neutrophils # 7.2 K/mm3 (1.8-7.8); Neutrophils % 65.5 % (37.0-80.0); Platelet Count 298 K/mm3 (142-424); Red Blood Count 5.44 M/mm3 (4.60-6.20); Red Cell Distribution Width 14.5 % (11.5-17.5)
[2021-06-19 13:55] LABS: Ferritin 152 ng/ml (17.9-464)
--- NOTE | 2021-06-19 16:08 | PC.NURSE ---
1255 - LAB HERE TO DRAW BLOOD FOR CBC AND FERRITIN. IF FERRITIN >50, NEEDS THERAPEUTIC PHLEBOTOMY 500ML.
== END 2021-06-19 15:10 | disposition home or self-care (01) ==
LOC: INF 12:38
PROVIDERS: PCP Family Medicine; Visit Provider Family Medicine
DX: E83.110 Hereditary hemochromatosis (principal)
CPT/HCPCS: 36415; 82728; 85025; 99195

== ENCOUNTER 2021-09-25 10:32 | Outpatient (CLI) | payer MEDICARE, BC, SELFPAY ==
[2021-09-25 10:39] VITALS: BMI 35.2
[2021-09-25 10:57] LABS: Basophils # 0.2 K/mm3 (0-0.2); Basophils % 1.9 % (0.1-2.0); Eosinophils # 0.4 K/mm3 (0.0-0.4); Eosinophils % 4.4 % (0.1-12.0); Hematocrit 47.1 % (42.0-52.0); Hemoglobin 16.3 g/dL (14.1-18.0); Lymphocytes # 2.5 K/mm3 (0.7-4.5); Lymphocytes % 26.4 % (10-50); Mean Corpuscular HGB Conc 34.7 g/dL (31.8-35.4); Mean Corpuscular Hemoglobin 31.3 pg (27.0-31.2); Mean Corpuscular Volume 90.4 fl (80-94); Mean Platelet Volume 8.3 fl (7.4-10.4); Monocytes # 0.6 K/mm3 (0.1-1.0); Monocytes % 6.2 % (1.7-9.3); Neutrophils # 5.9 K/mm3 (1.8-7.8); Neutrophils % 61.2 % (37.0-80.0); Platelet Count 249 K/mm3 (142-424); Red Blood Count 5.21 M/mm3 (4.60-6.20); Red Cell Distribution Width 13.6 % (11.5-17.5); White Blood Count 9.6 K/mm3 (4.8-10.8)
[2021-09-25 11:41] LABS: Ferritin 201 ng/ml (17.9-464)
== END 2021-09-25 12:40 | disposition home or self-care (01) ==
LOC: INF 10:33
PROVIDERS: PCP Family Medicine; Visit Provider Family Medicine
DX: E83.110 Hereditary hemochromatosis (principal)
CPT/HCPCS: 36415; 82728; 85025; 99195

== ENCOUNTER 2021-12-25 09:35 | Outpatient (CLI) | payer MEDICARE, BC, SELFPAY ==
[2021-12-25 09:40] VITALS: BMI 35.2
--- NOTE | 2021-12-25 09:44 | PC.NURSE ---
0944-collected labs via peripheral stick;pt will be notified if he needs to come back for therapeutic phlebotomy.
[2021-12-25 09:53] LABS: Basophils # 0.2 K/mm3 (0-0.2); Basophils % 1.5 % (0.1-2.0); Eosinophils # 0.4 K/mm3 (0.0-0.4); Eosinophils % 3.4 % (0.1-12.0); Hematocrit 49.2 % (42.0-52.0); Hemoglobin 16.6 g/dL (14.1-18.0); Lymphocytes # 2.4 K/mm3 (0.7-4.5); Lymphocytes % 23.4 % (10-50); Mean Corpuscular HGB Conc 33.8 g/dL (31.8-35.4); Mean Corpuscular Hemoglobin 31.4 pg (27.0-31.2); Mean Corpuscular Volume 92.9 fl (80-94); Mean Platelet Volume 8.7 fl (7.4-10.4); Monocytes # 0.7 K/mm3 (0.1-1.0); Monocytes % 6.9 % (1.7-9.3); Neutrophils # 6.6 K/mm3 (1.8-7.8); Neutrophils % 64.8 % (37.0-80.0); Platelet Count 269 K/mm3 (142-424); Red Cell Distribution Width 14.2 % (11.5-17.5); White Blood Count 10.2 K/mm3 (4.8-10.8)
[2021-12-25 10:47] LABS: Ferritin 228 ng/ml (17.9-464)
[2021-12-25 11:40] VITALS: BP 166/84; PULSE 89; RESP 18; O2SAT 96
[2021-12-25 12:03] VITALS: BP 135/82; PULSE 90; RESP 18
== END 2021-12-25 12:03 | disposition home or self-care (01) ==
LOC: INF 09:36
PROVIDERS: PCP Family Medicine; Visit Provider Family Medicine
DX: E83.110 Hereditary hemochromatosis (principal)
CPT/HCPCS: 36415; 82728; 85025; 99195

== ENCOUNTER 2022-03-25 12:45 | Outpatient (CLI) | payer MEDICARE, BC, SELFPAY ==
[2022-03-25 12:51] VITALS: BMI 35.2
[2022-03-25 13:26] LABS: Hematocrit 46.7 % (42.0-52.0); Hemoglobin 15.6 g/dL (14.1-18.0)
--- NOTE | 2022-03-25 13:55 | PC.NURSE ---
1313 H&H and ferritin labs collected x1 stick to L forearm with butterly needle. Patient here for lab draw/possible therapeutic phlebotomy.
[2022-03-25 14:06] LABS: Ferritin 219 ng/ml (17.9-464)
[2022-03-25 14:20] VITALS: BP 148/79; PULSE 67; RESP 16; TEMP 36.6; O2SAT 98
[2022-03-25 14:50] VITALS: BP 154/73; PULSE 73; RESP 16; TEMP 36.6; O2SAT 98
--- NOTE | 2022-03-25 16:08 | PC.NURSE ---
500ml therapeutic phlebotomy performed per bobcat driver/labor as ordered based on ferritin of 219.
== END 2022-03-25 14:55 | disposition home or self-care (01) ==
LOC: INF 12:47
PROVIDERS: PCP Family Medicine; Visit Provider Family Medicine
DX: E83.110 Hereditary hemochromatosis (principal)
CPT/HCPCS: 36415; 82728; 85014; 85018; 99195

== ENCOUNTER 2022-04-02 10:32 | Outpatient (CLI) | payer MEDICARE, BC, SELFPAY ==
[2022-04-02 10:39] VITALS: BMI 35.2
[2022-04-02 11:02] LABS: Hematocrit 46.3 % (42.0-52.0); Hemoglobin 15.4 g/dL (14.1-18.0)
[2022-04-02 11:39] LABS: Ferritin 182 ng/ml (17.9-464)
--- NOTE | 2022-04-02 11:49 | PC.NURSE ---
1046-BLOOD DRAWN WITH BUTTERFLY NEEDLE TO CHECK H/H AND FERRITIN AT THIS TIME.
== END 2022-04-02 12:30 | disposition home or self-care (01) ==
LOC: INF 10:33
PROVIDERS: PCP Family Medicine; Visit Provider Family Medicine
DX: E83.119 Hemochromatosis, unspecified (principal)
CPT/HCPCS: 36415; 82728; 85014; 85018; 99195

== ENCOUNTER 2022-04-09 10:38 | Outpatient (CLI) | payer MEDICARE, BC, SELFPAY ==
[2022-04-09 10:45] VITALS: BMI 35.2
--- NOTE | 2022-04-09 10:48 | PC.NURSE ---
1048-collected labs via peripheral stick;will wait for labs for possible therapeutic phlebotomy
[2022-04-09 11:32] LABS: Hematocrit 43.1 % (42.0-52.0); Hemoglobin 14.5 g/dL (14.1-18.0)
[2022-04-09 11:44] LABS: Ferritin 141 ng/ml (17.9-464)
[2022-04-09 11:55] VITALS: BP 146/81; PULSE 77; RESP 18; O2SAT 96
[2022-04-09 12:20] VITALS: BP 132/81; PULSE 86; RESP 18
== END 2022-04-09 12:20 | disposition home or self-care (01) ==
LOC: INF 10:39
PROVIDERS: PCP Family Medicine; Visit Provider Family Medicine
DX: E83.110 Hereditary hemochromatosis (principal)
CPT/HCPCS: 36415; 82728; 85014; 85018; 99195

== ENCOUNTER 2022-04-16 10:30 | Outpatient (CLI) | payer MEDICARE, BC, SELFPAY ==
[2022-04-16 10:38] VITALS: BMI 35.2
[2022-04-16 10:58] LABS: Hematocrit 42.8 % (42.0-52.0); Hemoglobin 14.1 g/dL (14.1-18.0)
[2022-04-16 11:41] LABS: Ferritin 98.6 ng/ml (17.9-464)
[2022-04-16 11:52] VITALS: BP 161/77; PULSE 81; RESP 18; O2SAT 96
[2022-04-16 12:11] VITALS: BP 156/74; PULSE 90; RESP 18
== END 2022-04-16 12:11 | disposition home or self-care (01) ==
LOC: INF 10:32
PROVIDERS: PCP Family Medicine; Visit Provider Family Medicine
DX: E83.110 Hereditary hemochromatosis (principal)
CPT/HCPCS: 36415; 82728; 85014; 85018; 99195

== ENCOUNTER 2022-04-23 10:47 | Outpatient (CLI) | payer MEDICARE, BC, SELFPAY ==
[2022-04-23 10:54] VITALS: BMI 35.2
[2022-04-23 11:00] VITALS: BP 138/69; PULSE 75; RESP 18; TEMP 36.6; O2SAT 96
[2022-04-23 11:23] LABS: Hematocrit 43.5 % (42.0-52.0); Hemoglobin 13.5 g/dL (14.1-18.0)
--- NOTE | 2022-04-23 11:33 | PC.NURSE ---
lab staff at bs. iv started per self, 20 G to rt fa x 1 stick and phlebotomy process started at this time.
[2022-04-23 11:53] LABS: Ferritin 113 ng/ml (17.9-464)
[2022-04-23 11:54] VITALS: BP 148/71; PULSE 79; RESP 18; O2SAT 97
== END 2022-04-23 12:00 | disposition home or self-care (01) ==
LOC: INF 10:48
PROVIDERS: PCP Family Medicine; Visit Provider Family Medicine
DX: E83.110 Hereditary hemochromatosis (principal)
CPT/HCPCS: 36415; 82728; 85014; 85018; 99195

== ENCOUNTER 2022-04-29 14:25 | Outpatient (CLI) | payer MEDICARE, BC, SELFPAY ==
[2022-04-29 14:31] VITALS: BMI 35.2
--- NOTE | 2022-04-29 14:33 | PC.NURSE ---
1433-collected labs via peripheral stick
[2022-04-29 14:50] VITALS: BP 159/62; PULSE 91; RESP 18; O2SAT 98
[2022-04-29 14:52] LABS: Basophils # 0.1 K/mm3 (0-0.2); Basophils % 1.1 % (0.1-2.0); Eosinophils # 0.5 K/mm3 (0.0-0.4); Eosinophils % 4.1 % (0.1-12.0); Hematocrit 40.6 % (42.0-52.0); Hemoglobin 13.5 g/dL (14.1-18.0); Lymphocytes # 2.7 K/mm3 (0.7-4.5); Lymphocytes % 24.5 % (10-50); Mean Corpuscular HGB Conc 33.1 g/dL (31.8-35.4); Mean Corpuscular Hemoglobin 31.3 pg (27.0-31.2); Mean Corpuscular Volume 94.4 fl (80-94); Mean Platelet Volume 8.4 fl (7.4-10.4); Monocytes # 0.9 K/mm3 (0.1-1.0); Monocytes % 7.8 % (1.7-9.3); Neutrophils # 6.9 K/mm3 (1.8-7.8); Neutrophils % 62.6 % (37.0-80.0); Platelet Count 309 K/mm3 (142-424); Red Cell Distribution Width 14.6 % (11.5-17.5)
--- NOTE | 2022-04-29 15:10 | PC.NURSE ---
1510-right forearm iv clotted attempted to flush; still clotted;restarted left forearm 20g iv;obtained blood return but unable to continue therapeutic phlebotomy.
[2022-04-29 15:19] VITALS: BP 169/72; PULSE 75; RESP 18; O2SAT 97
[2022-04-29 15:35] LABS: Ferritin 74.6 ng/ml (17.9-464)
== END 2022-04-29 15:19 | disposition home or self-care (01) ==
LOC: INF 14:25
PROVIDERS: PCP Family Medicine; Visit Provider Family Medicine
DX: E83.110 Hereditary hemochromatosis (principal)
CPT/HCPCS: 36415; 82728; 85025; 99195

== ENCOUNTER 2022-05-14 10:49 | Outpatient (CLI) | payer MEDICARE, BC, SELFPAY ==
[2022-05-14 10:56] VITALS: BMI 35.2
[2022-05-14 11:23] LABS: Hematocrit 44.2 % (42.0-52.0); Hemoglobin 14.9 g/dL (14.1-18.0)
[2022-05-14 12:02] LABS: Ferritin 54.7 ng/ml (17.9-464)
== END 2022-05-14 11:55 | disposition home or self-care (01) ==
LOC: INF 10:49
PROVIDERS: PCP Family Medicine; Visit Provider Family Medicine
DX: E83.110 Hereditary hemochromatosis (principal)
CPT/HCPCS: 36415; 82728; 85014; 85018; 99195

== ENCOUNTER 2022-06-10 12:17 | Outpatient (CLI) | payer MEDICARE, BC, SELFPAY ==
[2022-06-10 12:20] VITALS: BMI 35.2
--- NOTE | 2022-06-10 12:31 | PC.NURSE ---
pt here for lab check and possible phlebotomy if needed. venipuncture performed to obtain blood for labs using a butterfly needle to pt's lt fa. specimen obtained and sent to lab for analysis.
[2022-06-10 12:34] LABS: Hemoglobin 16.1 g/dL (14.1-18.0)
[2022-06-10 13:19] LABS: Ferritin 52.4 ng/ml (17.9-464)
== END 2022-06-10 13:30 | disposition home or self-care (01) ==
LOC: INF 12:17
PROVIDERS: PCP Family Medicine; Visit Provider Family Medicine
DX: E83.110 Hereditary hemochromatosis (principal)
CPT/HCPCS: 36415; 82728; 85014; 85018

== ENCOUNTER 2022-08-05 10:01 | Outpatient (CLI) | payer MEDICARE, BC, SELFPAY ==
[2022-08-05 10:09] VITALS: BMI 35.2
[2022-08-05 10:25] LABS: Hemoglobin 15.8 g/dL (14.1-18.0)
[2022-08-05 11:11] LABS: Ferritin 74.8 ng/ml (17.9-464)
--- NOTE | 2022-08-05 11:33 | PC.NURSE ---
1016- labs drawn via butterfly needle in left wrist. ferritin level did not meet requirements for phlebotomy at this time per MD order.
== END 2022-08-05 11:31 | disposition home or self-care (01) ==
LOC: INF 10:02
PROVIDERS: PCP Family Medicine; Visit Provider Family Medicine
DX: E83.110 Hereditary hemochromatosis (principal)
CPT/HCPCS: 36415; 82728; 85014; 85018

== ENCOUNTER 2022-09-02 10:08 | Outpatient (CLI) | payer MEDICARE, BC, SELFPAY ==
[2022-09-02 10:14] VITALS: BMI 35.2
--- NOTE | 2022-09-02 10:18 | PC.NURSE ---
1018-collected labs via venipuncture stick in left wrist;will wait for results may need therapeutic phlebotomy for ferritin > 75
[2022-09-02 11:11] LABS: Ferritin 121 ng/ml (17.9-464)
[2022-09-02 11:18] VITALS: BP 164/88; PULSE 75; RESP 18; O2SAT 95
[2022-09-02 11:40] VITALS: BP 156/80; PULSE 80; RESP 18
== END 2022-09-02 11:40 | disposition home or self-care (01) ==
LOC: INF 10:09
PROVIDERS: PCP Family Medicine; Visit Provider Family Medicine
DX: E83.110 Hereditary hemochromatosis (principal)
CPT/HCPCS: 36415; 82728; 85014; 85018; 99195

== ENCOUNTER 2022-09-11 10:52 | Outpatient (CLI) | payer MEDICARE, BC, SELFPAY ==
[2022-09-11 11:07] VITALS: BMI 35.2
[2022-09-11 11:25] VITALS: BP 163/72; PULSE 85; RESP 18; TEMP 36.7; O2SAT 97
[2022-09-11 11:33] LABS: Hematocrit 43.7 % (42.0-52.0); Hemoglobin 14.7 g/dL (14.1-18.0)
[2022-09-11 11:45] VITALS: BP 140/77; PULSE 74; RESP 18; O2SAT 97
[2022-09-11 12:15] LABS: Ferritin 89.4 ng/ml (17.9-464)
== END 2022-09-11 11:45 | disposition home or self-care (01) ==
PROVIDERS: PCP Family Medicine; Visit Provider Family Medicine
DX: E83.110 Hereditary hemochromatosis (principal)
CPT/HCPCS: 36415; 82728; 85014; 85018; 99195

== ENCOUNTER 2022-09-16 10:28 | Outpatient (CLI) | payer MEDICARE, BC, SELFPAY ==
[2022-09-16 10:33] VITALS: BMI 35.2
--- NOTE | 2022-09-16 10:40 | PC.NURSE ---
1040-COLLECTED LABS VIA VENIPUNCTURE STICK WITH BUTTERFLY NEEDLE IN LEFT WRIST; WILL WAIT ON RESULTS FOR POSSIBLE THERAPEUTIC PHLEBOTOMY.
[2022-09-16 10:55] LABS: Hematocrit 40.7 % (42.0-52.0); Hemoglobin 13.6 g/dL (14.1-18.0)
[2022-09-16 11:37] LABS: Ferritin 60.9 ng/ml (17.9-464)
--- NOTE | 2022-09-16 12:15 | PC.NURSE ---
1203-PT DOES NOT REQUIRE THERAPEUTIC PHLEBOTOMY PER MD ORDER;FERRITIN 60.9
== END 2022-09-16 12:03 | disposition home or self-care (01) ==
LOC: INF 10:29
PROVIDERS: PCP Family Medicine; Visit Provider Family Medicine
DX: E83.110 Hereditary hemochromatosis (principal)
CPT/HCPCS: 36415; 82728; 85014; 85018

== ENCOUNTER 2022-10-28 10:33 | Outpatient (CLI) | payer MEDICARE, BC, SELFPAY ==
[2022-10-28 10:40] VITALS: BMI 35.2
--- NOTE | 2022-10-28 10:45 | PC.NURSE ---
1045-collected labs via venipuncture stick in left forearm;pt to wait til lab results for possible therapeutic phlebotomy.
[2022-10-28 11:09] LABS: Hematocrit 46.8 % (42.0-52.0); Hemoglobin 15.6 g/dL (14.1-18.0)
[2022-10-28 11:44] LABS: Ferritin 44.4 ng/ml (17.9-464)
--- NOTE | 2022-10-28 11:47 | PC.NURSE ---
1147-pt d/c home ferritin 44.4.
== END 2022-10-28 11:47 | disposition home or self-care (01) ==
LOC: INF 10:34
PROVIDERS: PCP Family Medicine; Visit Provider Family Medicine
DX: E83.110 Hereditary hemochromatosis (principal)
CPT/HCPCS: 36415; 82728; 85014; 85018

== ENCOUNTER 2022-12-30 10:27 | Outpatient (CLI) | payer MEDICARE, BC, SELFPAY ==
[2022-12-30 10:33] VITALS: BMI 39.4
--- NOTE | 2022-12-30 10:38 | PC.NURSE ---
1038-collected labs via venipuncture stick with butterfly needle;specimens to lab;pt to wait on results for possible therapeutic phlebotomy if ferritin >75
[2022-12-30 10:52] LABS: Hematocrit 51.8 % (42.0-52.0); Hemoglobin 16.9 g/dL (14.1-18.0)
[2022-12-30 11:34] LABS: Ferritin 83.3 ng/ml (17.9-464)
[2022-12-30 12:05] VITALS: BP 180/90; PULSE 84; RESP 18; O2SAT 93
[2022-12-30 12:25] VITALS: BP 155/91; PULSE 94; RESP 18
== END 2022-12-30 12:25 | disposition home or self-care (01) ==
PROVIDERS: PCP Family Medicine; Visit Provider Family Medicine
DX: E83.110 Hereditary hemochromatosis (principal)
CPT/HCPCS: 36415; 82728; 85014; 85018; 99195

== ENCOUNTER 2023-04-03 10:04 | Outpatient (CLI) | payer MEDICARE, BC, SELFPAY ==
--- NOTE | 2023-04-03 10:14 | PC.NURSE ---
1014-k.zach rn collected labs via venipuncture stick in left forearm with butterfly needle; pt to wait for results for possible therapeutic phlebotomy for ferritin >75
[2023-04-03 10:21] VITALS: BMI 35.2
[2023-04-03 10:41] LABS: Hematocrit 48.9 % (42.0-52.0); Hemoglobin 16.8 g/dL (14.1-18.0)
[2023-04-03 11:29] LABS: Ferritin 108 ng/ml (17.9-464)
[2023-04-03 11:53] VITALS: BP 155/94; PULSE 89; RESP 18; O2SAT 96
[2023-04-03 12:11] VITALS: BP 169/87; PULSE 101; RESP 18; O2SAT 97
== END 2023-04-03 12:11 | disposition home or self-care (01) ==
LOC: INF 10:06
PROVIDERS: PCP Family Medicine; Visit Provider Family Medicine
DX: E83.119 Hemochromatosis, unspecified (principal)
CPT/HCPCS: 36415; 82728; 85014; 85018; 99195

== ENCOUNTER 2023-06-10 09:27 | Outpatient (CLI) | payer MEDICARE, BC, SELFPAY ==
[2023-06-10 09:35] VITALS: BMI 35.2
[2023-06-10 09:52] LABS: Hemoglobin 15.8 g/dL (14.1-18.0)
--- NOTE | 2023-06-10 10:09 | PC.NURSE ---
0937-C. JABIER Gaspar collected labs venipuncture stick; patient to wait on labs for possible therapeutic phelobotomy
[2023-06-10 10:32] LABS: Ferritin 141 ng/ml (17.9-464)
[2023-06-10 11:20] VITALS: BP 144/83; PULSE 84; RESP 18; TEMP 36.6; O2SAT 95
[2023-06-10 11:32] VITALS: BP 136/84; PULSE 91; RESP 18; TEMP 36.7; O2SAT 96
== END 2023-06-10 11:36 | disposition home or self-care (01) ==
LOC: INF 09:28
PROVIDERS: PCP Family Medicine; Visit Provider Family Medicine
DX: E83.110 Hereditary hemochromatosis (principal)
CPT/HCPCS: 36415; 82728; 85014; 85018; 99195

== ENCOUNTER 2023-06-24 09:43 | Outpatient (CLI) | payer MEDICARE, BC, SELFPAY ==
[2023-06-24 09:49] VITALS: BMI 35.2
--- NOTE | 2023-06-24 09:56 | PC.NURSE ---
0950-BLOOD DRAWN FROM LEFT FA USING BUTTERFLY NEEDLE TO CHECK H/H AND FERRITIN TO DETERMINE IF PT NEEDS THERAPEUTIC PHLEBOTOMY.
[2023-06-24 09:59] LABS: Hematocrit 46.4 % (42.0-52.0); Hemoglobin 15.7 g/dL (14.1-18.0)
[2023-06-24 10:45] LABS: Ferritin 109 ng/ml (17.9-464)
[2023-06-24 11:14] VITALS: BP 143/77; PULSE 81; RESP 18; O2SAT 94
[2023-06-24 11:29] VITALS: BP 145/82; PULSE 87; RESP 18; O2SAT 94
== END 2023-06-24 11:29 | disposition home or self-care (01) ==
LOC: INF 09:43
PROVIDERS: PCP Family Medicine; Visit Provider Family Medicine
DX: E83.110 Hereditary hemochromatosis (principal)
CPT/HCPCS: 36415; 82728; 85014; 85018; 99195

== ENCOUNTER 2023-07-08 09:39 | Outpatient (CLI) | payer MEDICARE, BC, SELFPAY ==
[2023-07-08 09:46] VITALS: BMI 35.2
[2023-07-08 10:00] LABS: Hematocrit 45.6 % (42.0-52.0); Hemoglobin 15.1 g/dL (14.1-18.0)
[2023-07-08 10:39] LABS: Ferritin 73.7 ng/ml (17.9-464)
[2023-07-08 11:03] VITALS: BP 151/80; PULSE 75; RESP 16; O2SAT 94
[2023-07-08 11:19] VITALS: BP 161/89; PULSE 87
== END 2023-07-08 11:19 | disposition home or self-care (01) ==
PROVIDERS: PCP Family Medicine; Visit Provider Family Medicine
DX: E83.110 Hereditary hemochromatosis (principal)
CPT/HCPCS: 36415; 82728; 85014; 85018; 99195

== ENCOUNTER 2023-09-09 09:55 | Outpatient (CLI) | payer MEDICARE, BC, SELFPAY ==
[2023-09-09 10:01] VITALS: BMI 35.2
--- NOTE | 2023-09-09 10:08 | PC.NURSE ---
1008-collected labs via venipuncture stick with butterfly needle in left forearm; will call pt with results for possible therapeutic phlebotomy.
[2023-09-09 10:19] LABS: Hematocrit 48.2 % (42.0-52.0)
[2023-09-09 14:24] LABS: Ferritin 111 ng/ml (17.9-464)
== END 2023-09-09 10:20 | disposition home or self-care (01) ==
LOC: INF 09:56
PROVIDERS: PCP Family Medicine; Visit Provider Family Medicine
DX: E83.110 Hereditary hemochromatosis (principal)
CPT/HCPCS: 36415; 82728; 85014; 85018

== ENCOUNTER 2023-09-10 11:18 | Outpatient (CLI) | payer MEDICARE, BC, SELFPAY ==
[2023-09-10 11:18] VITALS: BP 174/88; PULSE 80; RESP 20; O2SAT 96
[2023-09-10 11:25] VITALS: BP 168/83; PULSE 82; RESP 19; O2SAT 96
== END 2023-09-10 11:25 | disposition home or self-care (01) ==
LOC: INF 11:19
PROVIDERS: PCP Family Medicine; Visit Provider Family Medicine
DX: E83.119 Hemochromatosis, unspecified (principal)
CPT/HCPCS: 99195

== ENCOUNTER 2023-10-06 09:25 | Outpatient (CLI) | payer MEDICARE, BC, SELFPAY ==
[2023-10-06 09:28] VITALS: BMI 35.2
--- NOTE | 2023-10-06 09:32 | PC.NURSE ---
0932-collected labs via venipuncture stick in left forearm with butterfly needle;pt to wait on results for possible therapeutic phlebotomy for ferritin >75
[2023-10-06 09:45] LABS: Hematocrit 46.4 % (42.0-52.0); Hemoglobin 14.8 g/dL (14.1-18.0)
[2023-10-06 10:26] LABS: Ferritin 49.7 ng/ml (17.9-464)
--- NOTE | 2023-10-06 10:32 | PC.NURSE ---
1032-pt to d/c home with ferritin 49.7; pt to return in 1 month
== END 2023-10-06 10:32 | disposition home or self-care (01) ==
LOC: INF 09:26
PROVIDERS: PCP Family Medicine; Visit Provider Family Medicine
DX: E83.110 Hereditary hemochromatosis (principal)
CPT/HCPCS: 36415; 82728; 85014; 85018

== ENCOUNTER 2023-11-03 09:29 | Outpatient (CLI) | payer MEDICARE, BC, SELFPAY ==
[2023-11-03 09:33] VITALS: BMI 35.2
[2023-11-03 09:49] LABS: Hematocrit 47.5 % (42.0-52.0); Hemoglobin 15.7 g/dL (14.1-18.0)
[2023-11-03 10:32] LABS: Ferritin 55.9 ng/ml (17.9-464)
--- NOTE | 2023-11-03 10:45 | PC.NURSE ---
1045-pt d/c home;ferritin 55
== END 2023-11-03 10:45 | disposition home or self-care (01) ==
PROVIDERS: PCP Family Medicine; Visit Provider Family Medicine
DX: E83.110 Hereditary hemochromatosis (principal)
CPT/HCPCS: 36415; 82728; 85014; 85018

== ENCOUNTER 2024-01-05 09:23 | Outpatient (CLI) | payer MEDICARE, BC, SELFPAY ==
[2024-01-05 09:26] VITALS: BMI 35.2
--- NOTE | 2024-01-05 09:30 | PC.NURSE ---
0930-collected labs via venipuncture stick in left forearm with butterfly needle;pt to wait on results for possible therapeutic phlebotomy if ferritin>75.
[2024-01-05 09:40] LABS: Hematocrit 46.9 % (42.0-52.0); Hemoglobin 15.5 g/dL (14.1-18.0)
[2024-01-05 10:22] LABS: Ferritin 101 ng/ml (17.9-464)
[2024-01-05 10:45] VITALS: BP 149/77; PULSE 75; RESP 18; TEMP 36.7; O2SAT 95
[2024-01-05 10:55] VITALS: BP 144/89; PULSE 82; RESP 18; O2SAT 95
== END 2024-01-05 10:55 | disposition home or self-care (01) ==
LOC: INF 09:24
PROVIDERS: PCP Family Medicine; Visit Provider Family Medicine
DX: E83.110 Hereditary hemochromatosis (principal)
CPT/HCPCS: 36415; 82728; 85014; 85018; 99195

== ENCOUNTER 2024-03-08 09:43 | Outpatient (CLI) | payer MEDICARE, BC, SELFPAY ==
[2024-03-08 09:54] VITALS: BMI 35.2
--- NOTE | 2024-03-08 09:55 | PC.NURSE ---
venipuncture draw with 23g butterfly needle missed in LAC on first draw then was successful with 2nd attempt to L hand. pt tolerated well. labs drawn. orders placed. labs taken to lab. 2x2s and coban applied. bleeding controlled.
[2024-03-08 10:22] LABS: Hematocrit 46.4 % (42.0-52.0)
[2024-03-08 11:39] LABS: Ferritin 101 ng/ml (17.9-464)
[2024-03-08 12:00] VITALS: BP 125/89; PULSE 76; RESP 18; O2SAT 96
[2024-03-08 12:30] VITALS: BP 145/81; PULSE 83; RESP 18; O2SAT 96
== END 2024-03-08 12:30 | disposition home or self-care (01) ==
LOC: INF 09:45
PROVIDERS: PCP Family Medicine; Visit Provider Family Medicine
DX: E83.110 Hereditary hemochromatosis (principal)
CPT/HCPCS: 36415; 82728; 85014; 85018; 99195

== ENCOUNTER 2024-06-14 09:32 | Outpatient (CLI) | payer MEDICARE, BC, SELFPAY ==
--- NOTE | 2024-06-14 09:45 | PC.NURSE ---
0945-collected labs via venipuncture stick in left hand with butterfly needle;pt to wait on labs for possible therapeutic phlebotomy if ferritin >75
[2024-06-14 09:46] VITALS: BMI 35.2
[2024-06-14 09:54] LABS: Hematocrit 49.8 % (42.0-52.0); Hemoglobin 17.2 g/dL (14.1-18.0)
[2024-06-14 10:47] LABS: Ferritin 90.8 ng/ml (17.9-464)
[2024-06-14 11:15] VITALS: BP 165/72; PULSE 90; RESP 18; O2SAT 96
[2024-06-14 11:35] VITALS: BP 119/68; PULSE 96; RESP 18; O2SAT 95
== END 2024-06-14 11:35 | disposition home or self-care (01) ==
LOC: INF 09:34
PROVIDERS: PCP Family Medicine; Visit Provider Family Medicine
DX: E83.110 Hereditary hemochromatosis (principal)
CPT/HCPCS: 36415; 82728; 85014; 85018; 99195

== ENCOUNTER 2024-09-12 09:41 | Outpatient (CLI) | payer MEDICARE, BC, SELFPAY ==
[2024-09-12 10:14] VITALS: BP 171/74; PULSE 69; RESP 18; O2SAT 96
[2024-09-12 10:30] VITALS: BP 162/68; PULSE 76; RESP 18; O2SAT 99
== END 2024-09-12 10:30 | disposition home or self-care (01) ==
LOC: INF 09:43
PROVIDERS: PCP Family Medicine; Visit Provider Family Medicine
DX: E83.110 Hereditary hemochromatosis (principal)
CPT/HCPCS: 99195

== ENCOUNTER 2024-10-03 09:49 | Outpatient (CLI) | payer MEDICARE, BC, SELFPAY ==
[2024-10-03 09:53] VITALS: BMI 35.9
--- NOTE | 2024-10-03 10:02 | PC.NURSE ---
1002-collected labs via venipuncture stick in left forearm with butterfly needle;will wait on labs if ferritin>75 will do therapeutic phlebotomy.
[2024-10-03 10:09] LABS: Hematocrit 46.5 % (42.0-52.0); Hemoglobin 15.9 g/dL (14.1-18.0)
--- OUTSIDE RECORDS SUMMARY | 2024-10-03 10:19 | XMS_ITS | Data Portability ---
Author Organization [facility] Address [address] [facility] [address] [place] [address] Care Team Providers Care Boat Puller Name Role Phone MEHNAZ SANDERS Primary Care Provider Assessment Encounter Date Assessment Date Assessment LastModified by Organization Details LastModified Time 04/20/2020 04/20/[address] Sanders for this referral. We are going to start the patient on physical therapy and make referral to pain management to address his L3-4 spinal stenosis. Instructed the patient to contact us if he has any further exacerbation of symptoms for consideration of more aggressive treatment. [email or web address] Not available 04/20/2020 13:42:20 Plan of Treatment Reminders Order Date Submit Date Provider Last Modified By Organization Details Last Modified Time Details Appointments None record ed. Lab None record ed. Referral None record ed. Procedures None record ed. Surgeries None record ed. Imaging None record ed. Medication Orders None record ed. Patient TargetsNo targets recorded. Patient Instructions Encounter Date Encounter Id Patient Instructions Last Modified By Organization Details Last Modified Time 04/20/2020 [id number] MRI CD-ROM [facility]: Moderate spinal stenosis L3-4 with a subtle underlying spondylolisthesis, facet arthropathy and facet hyperintensity Spent 45 total minutes with the patient today. Greater than 50% of this time was spent counseling/coordin ation of care as documented in my assessment and plan above. Not available 04/20/2020 13:42:53 Reason for Referral None Reported. Results Created Date Observation Date Name Description Value Unit Range Abnormal Flag Note LastModifiedBy Organization Detail LastModifiedTime 04/20/19 21 04/20/2020 XR, lumbo sacra l spine , 2 or 3 view, bendi ng only [place] [facility] [address] [place] [address] Garett randolph Name: ARNOLD randolph : 955 Garett randolph 74 Orderi ng Provid er: KARISHMA PARIS EXAM DATE: 2020 EXAM: XR LUMBAR SPINE FLEX/E XT ONLY CLINIC AL INFORM ATION: Back pain. IMAGES PROVID ED: Latera l views of the lumbar spine in flexio n and extens ion. COMPAR KENNETH: None. FINDIN GS: Verteb ral body height s are normal . Multil evel disc space reduct ion is seen with anteri or and latera l osteop hytes. No abnorm ality of alignm ent is seen. No instab ility is seen on flexio n or extens ion. Degene rative change s are seen in the facet joints . No radiog raphic eviden ce of injury is noted. IMPRES DENEEN: Degene rative change s of the lumbar spine. No instab ility. Interp reted By: Jevon Gooden MD Electr onical ly Signed By: Jevon Gooden MD on 04/20/19 21 2:[address] [facility] [address], [address], 04/24/2020 11:38:18 04/23/19 21 02/29/2020 MRI, lumba r spine , w/o contr ast No observ ation record ed. BARCODE Not Available 2020 10:22:55 04/23/19 21 02/21/2020 XR, lumba r spine , 2 view No observ ation record ed. BARCODE Not Available 2020 10:22:55 Result Notes Documentation Provider Name and Address Organization Details Recorded Time Xr, Lumbosacral Spine, 2 Or 3 View, Bending Only : [address] [address] Patient Name: ARNOLD PARHAM Patient : [id number] Patient Ordering Provider: MARCELINO SAM EXAM DATE: 04/20/2020 EXAM: XR LUMBAR SPINE FLEX/EXT ONLY CLINICAL INFORMATION: Back pain. IMAGES PROVIDED: Lateral views of the lumbar spine in flexion and extension. COMPARISON: None. FINDINGS: Vertebral body heights are normal. Multilevel disc space reduction is seen with anterior and lateral osteophytes. No abnormality of alignment is seen. No instability is seen on flexion or extension. Degenerative changes are seen in the facet joints. No radiographic evidence of injury is noted. IMPRESSION: Degenerative changes of the lumbar spine. No instability. Interpreted By: Skip Gooden MD [place] [facility] 04/24/2020 11:38:18 Procedures Surgical History Date Name Laterality Status Provider Name and Address Organization Details Recorded Time appendectomy completed Delisa FRANKLIN [facility] 04/20/2020 13:34:28 Imaging Results None recorded. Procedure Notes None recorded. Medical Equipment None Reported. Allergies No known drug allergies Medications Name Sig Start Date Stop Date Status Note LastModified by Organization Details LastModified Time atorvastatin 10 mg tablet TAKE 1 TABLET BY MOUTH ONCE DAILY active Not Available Not Available No t Available azithromycin 250 mg tablet TAKE 2 TABLETS BY MOUTH ON DAY 1 AND THEN TAKE 1 TABLET BY MOUTH ONCE A DAY ON DAY 2 THROUGH DAY 5 active Not Available Not Available No t Available glyburide 5 mg tablet TAKE 1 TABLET BY MOUTH ONCE DAILY WITH BREAKFAST OR THE FIRST MAIN MEAL OF THE DAY active Not Available Not Available No t Available ibuprofen 800 mg tablet TAKE 1 TABLET BY MOUTH THREE TIMES DAILY WITH FOOD OR MILK NEEDED active Not Available Not Available No t Available meloxicam 15 mg tablet TAKE 1 TABLET BY MOUTH ONCE DAILY active Not Available Not Available No t Available Medrol (Francois) 4 mg tablets in a dose pack Take as directed 2020 active Not Available Not Available Not Avai lable sildenafil 100 mg tablet TAKE 1 TABLET BY MOUTH ONCE DAILY NEEDED active Not Available Not Available No t Available benzonatate 100 mg capsule TAKE 1 CAPSULE BY MOUTH THREE TIMES DAILY NEEDED FOR COUGH active Not Available Not Available No t Available metformin 1,000 mg tablet TAKE 1 TABLET BY MOUTH ONCE DAILY WITH A MEAL active Not Available Not Available No t Available hydrochlorot hiazide 25 mg tablet TAKE 1 TABLET BY MOUTH ONCE DAILY IN THE MORNING active Not Available Not Available Not Available gabapentin 100 mg capsule TAKE 1 CAPSULE BY MOUTH THREE TIMES DAILY active Not Available Not Available Not Available losartan 100 mg tablet TAKE 1 TABLET BY MOUTH ONCE DAILY active Not Available Not Available No t Available metoprolol tartrate 25 mg tablet TAKE 1 TABLET BY MOUTH TWICE DAILY WITH FOOD active Not Available Not Available No t Available Prevnar 13 (PF) 0.5 mL intramuscula r syringe PHARMACIST ADMINISTERE D IMMUNIZATIO N ADMINISTERE D AT TIME OF DISPENSING active Not Available Not Available N ot Available Fluzone High-Dose Quad (PF) 240 mcg/0.7 mL IM syringe PHARMACIST ADMINISTERE D IMMUNIZATIO N ADMINISTERE D AT TIME OF DISPENSING active Not Available Not Available N ot Available Vitals Date Recorded Heart rate Body weight Systolic blood pressure Diastolic blood pressure Provider Name and Address Organization Details Last Updated DateTime 04/20/2020 80 /min 372323.87 g 150 mm[Hg] 82 mm[Hg] Delisa Sherman [facility] 04/20/2020 13:13:21 Social History Question Answer Notes LastModified by Organizat ion Details LastModified Time Tobacco Smoking Status Former Smoker Delisa Sherman [facility] 04/20/2020 13:31:32 How Much Tobacco Do You Smoke? 2 PPD Information not available 04/20/2020 How Many Years Have You Smoked Tobacco? 20 Information not available 04/20/2020 Sex: Unknown Functional Status None recorded. Mental Status None recorded. Family History Relationship Description Onset Age of this Age Resolved Age Notes LastModified by Organization Details LastModified Time Unspecified Relation Malignant neoplastic disease apurdie Not available 2020 13:31:11 Medical History Condition Response Diabetes Y Hypertension Y Past Encounters Encounter ID Performer Location Encounter Start Date Encounter Closed Date Diagnosis/Indication Diagnosis SNOMED-CT Code Diagnosis ICD10 Code Diagnosis Note [id number] MARCELINO SAM MD [facility] [address] [facility] [place] [address] 04/20/2020 12:06:18 04/20/2020 13:49:13 Spinal stenosis of lumbar region 85344343 M48.062 -The patient presents for evaluation of his back pain. More severe episode in the last 2 3 months. Referred pain in the back and down the right leg. Resolved foot drop The patient is attempted anti-infla mmatories with some relief. At times, the pain is more mild and he can perform normal activities but is usually limited by how long he can stand her left. The MRI indicates a spinal stenosis at L3-4 but not critical. I think is very reasonable continue conservati ve measures which is the patient's preference . We talked about injections , further medication s, physical therapy. We'll go ahead and get the patient referral to pain management for evaluation and treatment. Referral to physical therapy. Could potentiall y benefit from a laminectom y and fusion at this level if the patient were to develop refractory symptoms in the future Physical therapy, pain management evaluation and treatment medrol dose pack f/e films for subluxatio n Health Concerns Section Related Observation LastModified by Organization Detai ls LastModified Time None Recorded Concern Status LastModified by Organization Details LastModified Time None Recorded Advance Directives Directive None Recorded Payers Insurance Date Sequence Insurance Name Policy Number Policy Will Covered Member ID Will Member ID Guarantor Name 04/23/2020 2 [place] [id number] Aronld Parham [id number] Arnold Parham 04/20/2020 1 [place] Arnold Parham [id number] Arnold Parham Notes Date Note Type Note Provider Name and Address Organization Details Recorded Time 04/20/2020 text/html The patient was seen at the request of Austyn Sanders. He is a 64-year-old presents for evaluation of his low back pain. Worsening symptoms last 3 months. Intensity of the pain is 6 out of 10. He endorses a deep ache tightness that it comes and goes. Alleviated by sitting or laying down. Aggravated by walking or lifting. The patient is very active. He was having foot drop that has recently improved. His pain is located across the back into his right hip and down his right leg. Occasional tingling. Comorbidities include diabetes. No significant history of peripheral neuropathy is reported. Treatment has included anti-inflammatories , ibuprofen. The patient had a short course of narcotics. Small relief with the above medications. The pain is been relatively stable but has mentioned that the weakness has improved MARCELINO SAM MD [address] [place], [address], [facility] 04/20/2020 13:43:26
--- OUTSIDE RECORDS SUMMARY | 2024-10-03 10:19 | XMS_ITS | Data Portability ---
Author Organization [facility] Address [address] [place] [address] Assessment Encounter Date Assessment Date Assessment LastModified by Organization Details LastModified Time 03/15/2024 03/15/2024 New patient presented for admission to the practice. Studies ordered as below. Discussed plan with patient, who expressed understanding . Follow up as noted below. [email or web address] Not available 03/21/2024 22:16:09 Plan of Treatment Reminders Order Date Submit Date Provider Last Modified By Organization Details Last Modified Time Details Appointments None recorded. Lab None recorded. Referral None recorded. Procedures None recorded. Surgeries None recorded. Imaging None recorded. Medication Orders Jardiance 10 mg tablet [address], [address], 22:16:11 Rybelsus 3 mg tablet [address], [address], 22:16:11 Patient TargetsNo targets recorded. Patient Instructions Encounter Date Encounter Id Patient Instructions Last Modified By Organization Details Last Modified Time 03/15/2024 [id number] learning about type 2 diabetes [email or web address] Not available 03/21/2024 22:16:10 type 2 diabetes: care instructions [email or web address] Not available 03/21/2024 22:16:10 Reason for Referral None Reported. Problems Name Problem SNOMED Code Status Onset Date Resolution Date Notes Provider Name and Address Organization Details Recorded Time Type 2 diabetes mellitus 95846603 Active 024 Yvonne Lockhartsheila n null, [place] - [facility] 4 15:30:54 Problem Notes None recorded. Procedures Surgical History Date Name Laterality Status Provider Name and Address Organization Details Recorded Time Appendectomy completed Eliane Camejo [place] [facility] 03/22/2024 16:54:44 Imaging Results None recorded. Procedure Notes None recorded. Medical Equipment None Reported. Allergies No known drug allergies Medications Name Sig Start Date Stop Date Status Note LastModified by Organization Details LastModified Time carvedilol 12.5 mg tablet TAKE 1 TABLET BY MOUTH TWICE DAILY WITH A MEAL active Not Available Not Available No t Available atorvastatin 10 mg tablet TAKE ONE (1) TABLET BY MOUTH DAILY. active Not Available Not Available No t Available glyburide 5 mg tablet TAKE TWO (2) TABLETS BY MOUTH DAILY WITH BREAKFAS T. active Not Available Not Available No t Available meloxicam 15 mg tablet TAKE ONE (1) TABLET BY MOUTH DAILY. active Not Available Not Available No t Available metformin 1,000 mg tablet TAKE 1 TABLET BY MOUTH TWICE DAILY WITH MEALS active Not Available Not Available No t Available hydrochlorothia zide 25 mg tablet TAKE ONE (1) TABLET BY MOUTH EVERY MORNING. active Not Available Not Available No t Available gabapentin 100 mg capsule TAKE 1 CAPSULE BY MOUTH THREE (3) TIMES DAILY active Not Available Not Available No t Available pioglitazone 30 mg tablet TAKE ONE (1) TABLET BY MOUTH DAILY. active Not Available Not Available No t Available losartan 100 mg tablet TAKE ONE (1) TABLET BY MOUTH DAILY. active Not Available Not Available No t Available metoprolol tartrate 25 mg tablet TAKE 1 TABLET BY MOUTH TWICE DAILY WITH MEALS active Not Available Not Available No t Available Jardiance 10 mg tablet TAKE 1 TABLET BY MOUTH EVERY DAY 2024 active Not Available Not Available Not Avai lable Rybelsus 3 mg tablet Take 1 tablet every day by oral route. 2023 active Not Available Not Available Not Avai lable Vitals Date Recorded Body weight Body temperature Heart rate Oxygen saturation Oxygen saturation in Arterial blood by Pulse oximetry Respiratory rate Systolic blood pressure Diastolic blood pressure Provider Name and Address Organization Details Last Updated DateTime 4 351089. 08 g 98.4 [degF] 88 /min 98 % 98 % 18 /min 140 mm[Hg] 82 mm[Hg] [facility] [place] [facility] 15:29:25 Social History Question Answer Notes LastModified by Organizat ion Details LastModified Time Tobacco Smoking Status Former Smoker Eliane Camejo null, [facility] 03/22/2024 16:55:39 When Did You Quit Smoking? 16+yearssinc elastcigaret te Information not available 03/22/2024 What Was The Date Of Your Most Recent Tobacco Screening? 03/15/2024 Information not available 03/22/2024 What Is Your Relationship Status? Information not available 03/22/2024 Has Tobacco Cessation Counseling Been Provided? Yes Information not available 03/22/2024 On What Date Was Tobacco Cessation Counseling Provided? 03/15/2024 Information not available 03/22/2024 Sex: Male Functional Status Question Answer Note LastModified by Organizat ion Details LastModified Time Are you currently employed? No Retired areaves Information not available 03/22/2024 Mental Status None recorded. Family History Nothing Reported. Medical History Condition Response Diabetes Y Degenerative Disc Disease Y Arthritis Y Hypertension Y Immunizations Vaccine Type Date Status Note Provider Nam e and Address Organization Details Recorded Time Influenza, high-dose, trivalent, PF [facility] 17:29:42 COVID-19, mRNA, LNP-S, PF, zac-sucrose, 30 mcg/0.3 mL 01[facility]28[facility]20[facility] 17:29:42 Past Encounters Encounter ID Performer Location Encounter Start Date Encounter Closed Date Diagnosis/Indication Diagnosis SNOMED-CT Code Diagnosis ICD10 Code Diagnosis Note [id number] Issa Sheppard MD [address] [place] [address] 01/28/2024 15:04:54 01/28/2024 15:41:41 Influenza vaccine needed 9776866193 106 Z23 Administra tion of SARS-CoV-2 vaccine 7624964845 Z23 [id number] Nicolette Yeung APRN [address] [place] [address] 03/15/2024 16:23:38 03/22/2024 06:36:14 Type 2 diabetes mellitus 05662402 E11.9 Health Concerns Section Related Observation LastModified by Organization Detai ls LastModified Time None Recorded Concern Status LastModified by Organization Details LastModified Time None Recorded Advance Directives Directive None Recorded Payers Insurance Date Sequence Insurance Name Policy Number Policy Will Covered Member ID Will Member ID Guarantor Name 03/22/2024 [employer] [id number]ARE[place] Arnold Dione [id number] 2 Arnold Parham 03/22/2024 2 [place] [id number] Arnold Dione [id number] Arnold Dione 03/13/2024 1 [place] Arnold Dione [id number] Arnold Dione Notes Date Note Type Note Provider Name and Address Organization Details Recorded Time 03/15/2024 text/html Arnold is a 68 y om who presents to the clinic today to establish care and obtain medication refills on jardiance and rybelsus. He was previously seen in another clinic, records pending. Patient reports he is up to date on screenings and labs. He has iron issues and was followed for treatment. 08/27/[id number] Most RecentHemoglobin A1C 7.4 he will return for fasting labs. Time spent with patient including chart review assessment and plan:20 min. Nicolette Yeung, [employer] [address], [place], [address], [place] - [facility] 03/22/2024 21:15:34
[2024-10-03 10:53] LABS: Ferritin 107 ng/ml (17.9-464)
[2024-10-03 11:00] VITALS: BP 166/78; PULSE 71; RESP 18; O2SAT 96
[2024-10-03 11:30] VITALS: BP 165/85; PULSE 75; RESP 18; O2SAT 96
== END 2024-10-03 11:30 | disposition home or self-care (01) ==
LOC: INF 09:50
PROVIDERS: PCP Family Medicine; Visit Provider Family Medicine
DX: E83.110 Hereditary hemochromatosis (principal)
CPT/HCPCS: 36415; 82728; 85014; 85018; 99195

== ENCOUNTER 2024-12-01 09:43 | Outpatient (CLI) | payer MEDICARE, BC, SELFPAY ==
[2024-12-01 09:46] VITALS: BMI 35.2
--- OUTSIDE RECORDS SUMMARY | 2024-12-01 09:49 | XMS_ITS | Clinical Summary ---
[facility] Address [address] [place] [address] Care Team Providers Care Route Inspector Name Role Phone Sumanth Wilson MD Primary Care Provider + Allergies No known active allergies Medications metFORMIN (GLUCOPHAGE) 1000 MG tabletIndication s:Type 2 diabetes mellitus with hyperglycemia, without long-term current use of insulin Take 1 tablet by mouth 2 (Two) Times a Day With Meals. 180 tablet 3 4 Active Additional Information Patient taking differently:1,000 mg Oral 2 Times Daily With Meals,Takes once daily, Reported on 08/29/2024 empagliflozin (Jardiance) 10 MG tablet tabletIndication s:Type 2 diabetes mellitus with hyperglycemia, without long-term current use of insulin Take 1 tablet by mouth Daily. 90 tablet 1 4 Active atorvastatin (LIPITOR) 10 MG tabletIndication s:Type 2 diabetes mellitus with hyperglycemia, without long-term current use of insulin Take 1 tablet by mouth Daily. 90 tablet 3 4 Active carvedilol (COREG) 12.5 MG tabletIndication s:Primary hypertension Take 1 tablet by mouth 2 (Two) Times a Day With Meals. 180 tablet 1 5 Active gabapentin (NEURONTIN) 100 MG capsuleIndicatio ns:Chronic bilateral low back pain with bilateral sciatica Take 1 capsule by mouth 3 (Three) Times a Day. 90 capsule 5 5 Active glyburide (DIAbeta) 5 MG tabletIndication s:Type 2 diabetes mellitus with hyperglycemia, without long-term current use of insulin Take 2 tablets by mouth Daily With Breakfast. 180 tablet 1 5 Active hydroCHLOROthiaz rodrigo 25 MG tabletIndication s:Primary hypertension Take 1 tablet by mouth Every Morning. 90 tablet 1 5 Active losartan (COZAAR) 100 MG tabletIndication s:Primary hypertension Take 1 tablet by mouth Daily. 90 tablet 1 5 Active meloxicam (MOBIC) 15 MG tabletIndication s:Chronic bilateral low back pain with bilateral sciatica Take 1 tablet by mouth Daily. 90 tablet 1 5 Active ibuprofen (ADVIL,MOTRIN) 800 MG tablet Take 1 tablet by mouth Every 6 (Six) Hours As Needed for Mild Pain. 90 tablet 5 Active Active Problems Problem Noted Date Diagnosed Date Obesity (BMI 35.0-39.9 without comorbidity) 08/11 Hereditary hemochromatosis 02/21/2022 Assessment & Plan (08/29/2024 2:37 PM EDT): Orders: Comprehensive Metabolic Panel Ferritin Hemoglobin and hematocrit, blood Assessment & Plan (02/26/2023 2:17 PM EST): Continue Ferritin, H/H every 3 months with prn phlebotomy Assessment & Plan (08/25/2022 2:14 PM EDT): Improved with routine phlebotomy. Continue serial labs with as needed phlebotomy moving forward Assessment & Plan (02/21/2022 3:25 PM EST): CBC, ferritin, transferrin saturation all ordered. Results will be used to make decision on further phlebotomy Primary hypertension 02/21/2022 Assessment & Plan (08/29/2024 2:37 PM EDT): Orders: Comprehensive Metabolic Panel carvedilol (COREG) 12.5 MG tablet; Take 1 tablet by mouth 2 (Two) Times a Day With Meals. hydroCHLOROthiazide 25 MG tablet; Take 1 tablet by mouth Every Morning. losartan (COZAAR) 100 MG tablet; Take 1 tablet by mouth Daily. Assessment & Plan (08/25/2022 2:14 PM EDT): Hypertension is improving with treatment. Continue current treatment regimen. Dietary sodium restriction. Weight loss. Regular aerobic exercise. Blood pressure will be reassessed at the next regular appointment. Assessment & Plan (02/21/2022 3:26 PM EST): Hypertension is Stable. Continue current treatment regimen. Dietary sodium restriction. Weight loss. Blood pressure will be reassessed at the next regular appointment. Antihypertensives were refilled today Type 2 diabetes mellitus wit hout complication, without long-term current use of insulin 02/21/2022 Assessment & Plan (08/25/2022 2:13 PM EDT): Diabetes is improving with treatment. Continue current treatment regimen. Dietary recommendations for ADA diet. Regular aerobic exercise. Diabetes will be reassessed in 6 months. Assessment & Plan (02/21/2022 3:26 PM EST): Diabetes is worsening. Continue current treatment regimen. Medications were refilled. Prescription for Jardiance will be sent to patient's pharmacy. If not covered then [facility] will be used as there is a patient assistance program for [facility]. Diabetes will be reassessed in 6 months. Surveillance labs been ordered Class 2 severe obesity due t o excess calories with serious comorbidity in adult 02/21/2022 Assessment & Plan (08/29/2024 2:37 PM EDT): Patient's (Body mass index is 36.98 kg/m .) indicates that they are morbidly/severely obese (BMI > 40 or > 35 with obesity - related health condition) with health conditions that include hypertension and diabetes mellitus . Weight is improving with lifestyle modifications. BMI is above average; BMI management plan is completed. We discussed portion control and increasing exercise. Assessment & Plan (08/25/2022 2:14 PM EDT): Patient's (Body mass index is 38.4 kg/m .) indicates that they are morbidly/severely obese (BMI > 40 or > 35 with obesity - related health condition) with health conditions that include hypertension and diabetes mellitus . Weight is worsening. BMI is above average; BMI management plan is completed. We discussed portion control. Assessment & Plan (02/21/2022 3:27 PM EST): Patient's (Body mass index is 35.29 kg/m .) indicates that they are morbidly obese (BMI > 40 or > 35 with obesity - related health condition) with health conditions that include hypertension and diabetes mellitus . Weight is unchanged. BMI is is above average; BMI management plan is completed. We discussed low calorie, low carb based diet program and increasing exercise. Encounters Date Type Department Care Team Description 09/16/2024 Telephone [facility] [address] [place] [phone] Sumanth Wilson MD New Med Request from Last 3 Months Immunizations Immunization Administration Dates Next Due Arexvy (RSV, Adults 60+ yrs) 12/25/2022 Fluzone (or Fluarix & Flulav al for VFC) >6mos 01/28/2019,02/07/2018 Fluzone High-Dose 65+YRS 01/28/2024 Fluzone High-Dose 65+yrs 12/25/2022,01/11,01/14/2021,12/10 Pneumococcal Conjugate 13-Va lent (PCV13) 12/11/2019 Pneumococcal Conjugate 20-Va lent (PCV20) 06/28/2021 Pneumococcal Polysaccharide (PPSV23) 02/24/2018 Shingrix 09/25/2022,07/24/2022 Tdap 02/24/2018 Family History Medical History Relation Name Comments Emphysema Father Cancer Mother Mady Parham metastatic Relation Name Status Comments Father Mother Mady Parham Social History Tobacco Use Types Packs/Day Years Used Date Smoking Tobacco: Former Cigarettes 3 15 0 04/13/1964 - 10/17/1969 Smokeless Tobacco: Never Tobacco Cessation:Counseling Given: Not Answered Alcohol Use Standard Drinks/Week Comments Never 0 (1 standard drink = 0.6 oz pur e alcohol) quit at age 22 PHQ-2 Answer Date Recorded Retired PHQ-9: Brief Depression Severity Measure Score 0 02/26/2023 PHQ-2 Answer Date Recorded Patient Health Questionnaire-2 Score 0 08/29/2024 Sex and Gender Information Value Date Recorded Sex Assigned at Male 08/22/2024 9:10 PM EDT Legal Sex Male 1:37 PM EDT Gender Identity Not on file Sexual Orientation Straight 08/22/2024 9 :10 PM EDT Last Filed Vital Signs Vital Sign Reading Time Taken Comments Blood Pressure 150/80 08/29/2024 2:14 PM EDT Pulse 82 08/29/2024 2:14 PM EDT Temperature 36.4 C (97.5 F) 08/29/2024 2:14 PM EDT Respiratory Rate 20 08/29/2024 2:14 PM EDT Oxygen Saturation 95% 08/29/2024 2:14 PM EDT Inhaled Oxygen Concentration - - Weight 114 kg (250 lb 6.4 oz) 08/29/2024 2:14 PM EDT Height 175.3 cm (5' 9 ) 08/29/2024 2:14 PM EDT Body Mass Index 36.98 08/29/2024 2:14 PM EDT Plan of Treatment Upcoming Encounters Date Type Department Care Team (Late st Contact Info) Description 12/02/2024 9:45 AM EDT Office Visit [facility] [address] [facility] [address] [place] [address] Sumanth Wilson MD [address] [facility] [place] [address] Health Maintenance Due Date Last Done Comments COLOGUARD 11/02/1999 COLON CANCER SCREENING 5 YEA R SIGMOIDOSCOPY 11/02/1999 COLONOSCOPY 11/02/1999 COLORECTAL CANCER SCREENING 11/02/1999 CT COLONOGRAPHY 11/02/1999 FECAL OCCULT BLOOD TEST 11/02/1999 FIT Testing (1 year) 11/02/1999 DIABETIC FOOT EXAM 08/26/2023 08/25/2022, 0 08/25/2022, 08/25/2022 COVID-19 Vaccine (2023-05 5 season) 2024 01/28/2024, 01/13/2023, 02/04/2022, Additional history exists INFLUENZA VACCINE 01/11/2025 01/28/2024, , 12/25/2022, Additional history exists DIABETIC EYE EXAM 01/14/2025 01/15/2024, , 02/21/2020 HEMOGLOBIN A1C 03/01/2025 08/29/2024, 02/11, 08/27/2023, Additional history exists ANNUAL WELLNESS VISIT 08/29/2025 08/29/2024 , 08/29/2024, 02/26/2023 URINE MICROALBUMIN-CREATININ E RATIO (uACR) 08/29/2025 08/29/2024 TDAP/TD VACCINES (2 - Td or Tdap) 02/25/2028 018 AAA SCREEN ONCE Completed 02/29/2020, 02/29/2020 Pneumococcal Vaccine 50+ Completed 022, 12/11/2019, 02/24/2018 ZOSTER VACCINE Completed 09/25/2022, 07/24/2022 HEPATITIS C SCREENING Discontinued Procedures Procedure Name Priority Date/Time Associated Diagnosis Comments SCANNED - LABS 10/03/2024 SCANNED - LABS 10/03/2024 POC ALBUMIN/CREATININE RATIO Routine 08/29/2024 4:02 PM EDT Type 2 diabetes mellitus with hyperglycemia, without long-term current use of insulin HEMOGLOBIN A1C Routine 08/29/2024 2:43 PM EDT Type 2 diabetes mellitus with hyperglycemia, without long-term current use of insulin from Last 3 Months or Most Recently Relevant to Health Maintenance Results * LABS SCANNED (10/03/2024) Only the most recent of2 resultswithin the time period is included. Sumanth Wilson MD LAB BLOOD ORDERABLES Fin al Result * POC Albumin/Creatinine Ratio Urine (08/29/2024 4:02 PM EDT) POC ALBUMIN, URINE 10 mg/L POC CREATININE, URINE 100 mg/dL POC Urine Albumin Creatinine Ratio < 30 mg/g <30 Comment:normal Lot Number [id number] Expiration Date 05/13/2025 Urine 08/29/2024 4:02 PM EDT Sumanth Wilson MD POINT OF CARE TEST ORDER AIME Final Result * (ABNORMAL) Hemoglobin A1c (08/29/2024 2:43 PM EDT) Hemoglobin A1C 8.5(H) 4.8 - 5.6 % [facility] Comment: Prediabetes: 5.7 - 6.4 Diabetes: >6.4 Glycemic control for adults with diabetes: <7.0 Blood 08/29/2024 2:43 PM EDT 08/29/2024 Narrative [facility]) - 08/30/2024 12:10 PM EDT [facility]formed at[facility] [address] [place] [id number] Director Drug Safety: Kane Meyer PhD, Phone: [phone] Patient Fasting: N us Sumanth Wilson MD LAB BLOOD ORDERABLES Fin al Result [facility] [address] [place] [address], [facility] [address] [place] [address], from Last 3 Months or Most Recently Relevant to Health Maintenance Insurance MEDICARE A & B Care Teams Route Inspector Relationship Specialty Start Date End Date Sumanth Wilson MD [address] [facility] [place] [address] PCP - General Family Medicine 02/21/22
--- OUTSIDE RECORDS SUMMARY | 2024-12-01 09:49 | XMS_ITS | Encounter Summary ---
Author Organization [facility] Address [address] [place] [id number] Care Team Providers Care Certified Medical Transcriptionist Name Role Phone Sumanth Wilson MD Primary Care Provider + Encounter Details Date Type Department Care Team (Late st Contact Info) Description 08/30/2024 Results Follow-Up [facility] [address] [facility] [place] [address] Sumanth Wilson MD [address] [facility] [place] [address] Social History Tobacco Use Types Packs/Day Years Used Date Smoking Tobacco: Former Cigarettes 3 15 0 04/13/1964 - 10/17/1969 Smokeless Tobacco: Never Alcohol Use Standard Drinks/Week Comments Never 0 [...] Not on file Sexual Orientation Straight 08/22/2024 9: 10 PM EDT documented as of this encounter Plan of Treatment Upcoming Encounters Date Type Department Care Team (Late st Contact Info) Description 12/02/2024 9:45 AM EDT Office Visit [facility] [address] [facility] [place] [address] Sumanth Wilson MD [address] [place] [address] documented as of this encounter Visit Diagnoses Not on filedocumented in this encounter Care Teams Certified Medical Transcriptionist Relationship Specialty Start Date End Date Sumanth Wilson MD [address] [place] [address] PCP - General Family Medicine 02/21/22 documented as of this encounter
[2024-12-01 10:08] LABS: Hematocrit 46.3 % (42.0-52.0); Hemoglobin 16.1 g/dL (14.1-18.0)
--- NOTE | 2024-12-01 10:58 | PC.NURSE ---
0950 H&H, ferritin labs obtained via venipuncture to L forearm x1 stick with butterfly needle. Patient tolerated well. Patient here for possible phlebotomy based on lab results.
[2024-12-01 12:18] LABS: Ferritin 137 ng/ml (17.9-464)
--- NOTE | 2024-12-01 15:12 | PC.NURSE ---
1135 Ferritin 137 today; patient will need therapeutic phlebotomy based on result of 137. Patient decided to leave prior to lab results finalized and wishes to reschedule once result received. Will call patient and schedule therapeutic phlebotomy as ordered.
--- NOTE | 2024-12-01 15:31 | PC.NURSE ---
Spoke with patient and scheduled for therapeutic phlebotomy tomorrow Hussein, 12/02/24 at 1230
== END 2024-12-01 11:35 | disposition home or self-care (01) ==
LOC: INF 09:44
PROVIDERS: PCP Family Medicine; Visit Provider Family Medicine
DX: E83.110 Hereditary hemochromatosis (principal)
CPT/HCPCS: 36415; 82728; 85014; 85018

== ENCOUNTER 2024-12-02 11:23 | Outpatient (CLI) | payer MEDICARE, BC, SELFPAY ==
--- OUTSIDE RECORDS SUMMARY | 2024-12-02 09:45 | XMS_ITS | Encounter Summary ---
[facility] Organization [facility] Address [address] [place] [address] Care Team Providers Care Customer Service Assistant Name Role Phone Sumanth Wilson MD Primary Care Provider + Reason for Referral * Consultation (Routine) - Pending Review Specialty Diagnoses / Procedures Referred By Contac t Referred To Contact Orthopedic Surgery Diagnoses Chronic pain of both knees Sumanth Wilson MD [address] [place] [address] [place] [address] Phone: tel: fax: [facility] [address] [place] [address] Phone: tel: fax: Referral ID Status Reason Start Date Expiration Date Visits Requested Visits Authorized Pending Review Specialty Services Required 12/02/2024 03/03/2026 1 1 * Diagnostic Imaging (Routine) - Authorized Specialty Diagnoses / Procedures Referred By Contac t Referred To Contact Radiology Diagnoses Chronic pain of both knees Procedures XR Knee Bilateral AP Standing Sumanth Wilson MD [address] [place] [address] [place] [address] Phone: tel: fax: Referral ID Status Reason Start Date Expiration Date V isits Requested Visits Authorized Authorized 12/02/2024 03/03/2026 1 1 * Diagnostic Imaging (Routine) - Authorized Specialty Diagnoses / Procedures Referred By Contac t Referred To Contact Radiology Diagnoses Chronic pain of both knees Procedures XR Knee 3 View Right Sumanth Wilson MD [address] [place] [address] Phone: tel: fax: Referral ID Status Reason Start Date Expiration Date V isits Requested Visits Authorized Authorized 12/02/2024 03/03/2026 1 1 * Diagnostic Imaging (Routine) - Authorized Specialty Diagnoses / Procedures Referred By Contcandi t Referred To Contact Radiology Diagnoses Chronic pain of both knees Procedures XR Knee 3 View Left Sumanth Wilson MD [address] [place] [address] Phone: tel: fax: Referral ID Status Reason Start Date Expiration Date V isits Requested Visits Authorized Authorized 12/02/2024 03/03/2026 1 1 Reason for Visit * Reason Comments Follow-up Diabetes Hypertension bilateral knee pain Worse with climbing Encounter Details Date Type Department Care Team (Late st Contact Info) Description 12/02/2024 9:45 AM EDT Office Visit [facility] [address] [place] [address] Sumanth Wilson MD [address] [place] [address] Type 2 diabetes mellitus with [...] Daily. Dispense: 30 tablet; Refill: 2 - pioglitazone (Actos) 15 MG tablet; [...] Description 03/03/2025 11:45 AM EST Office Visit [facility] [address] [facility] [place] [phone] Sumanth Wilson MD [address] [place] [address] Pending Results Name Type Priority Associated Diagnoses Date /Time XR Knee Bilateral AP Standing Imaging Routine Chronic pain of both knees 12/02/2024 10:20 AM EDT Scheduled Orders Name Type Priority Associated Diagnoses Orde r Schedule XR Knee 3 View Left Imaging Routine Chronic pain of both knees Expected: 12/02/2024, Expires: 03/04/2026 XR Knee 3 View Right Imaging Routine Chronic pain of both knees Expected: 12/02/2024, Expires: 03/04/2026 XR Knee Bilateral AP Standing Imaging Routine Chronic pain of both knees [...] insulin documented in this encounter Results * (ABNORMAL) POC Glycosylated Hemoglobin (Hb A1C) (12/02/2024 9:40 AM EDT) Hemoglobin A1C 8.4(A) 4.5 - 5.7 % [facility] Lot Number [id number] [facility] Expiration Date 07/27/2026 [facility] Blood 12/02/2024 9:40 AM EDT us Sumanth Wilson MD POINT OF CARE TEST ORDER AIME Final Result [facility]
[address] [place] [address], documented in this encounter Visit Diagnoses Diagnosis Type 2 diabetes mellitus with hyperglycemia, without long-term current use of insulin- Primary Hereditary hemochromatosis Primary hypertension Unspecified essential hypertension Chronic pain of both knees documented in this encounter Care Teams Customer Service Assistant Relationship Specialty Start Date End Date Sumanth Wilson MD [address] [place] [place] [address] PCP - General Family Medicine 02/21/22 documented as of this encounter
--- OUTSIDE RECORDS SUMMARY | 2024-12-02 10:15 | XMS_ITS | Encounter Summary ---
[facility] Organization [facility] Address [address] [place] [address] Care Team Providers Care Sleeper Cutter Name Role Phone Sumanth Wilson MD Primary Care Provider + Reason for Referral * Diagnostic Imaging (Routine) - Authorized Specialty Diagnoses / Procedures Referred By Contac t Referred To Contact Radiology Diagnoses Chronic pain of both knees Procedures XR Knee Bilateral AP Standing Sumanth Wilson MD [address] [facility] [place] [address] Phone: tel: fax: Referral ID Status Reason Start Date Expiration Date V isits Requested Visits Authorized Authorized 12/02/2024 03/03/2026 1 1 Reason for Visit * Diagnostic Imaging (Routine) - Authorized Specialty Diagnoses / Procedures Referred By Contac t Referred To Contact Radiology Diagnoses Chronic pain of both knees Procedures XR Knee Bilateral AP Standing Sumanth Wilson MD [facility] [place] [address] Phone: tel: fax: Referral ID Status Reason Start Date Expiration Date V isits Requested Visits Authorized Authorized 12/02/2024 03/03/2026 1 1 Encounter Details Date Type Department Care Team (Latest Contact Info) Description 12/02/2024 10:15 AM EDT Hospital Encounter [facility] [place] [address] [place] [address] Chronic pain of both knees Social History [...] Description 03/03/2025 11:45 AM EST Office Visit [facility] [address] [place] [phone] Sumanth Wilson MD [address] [place] [address] Pending Results Name Type Priority Associated Diagnoses Date /Time XR Knee Bilateral AP Standing Imaging Routine Chronic pain of both knees 12/02/2024 10:20 AM EDT Scheduled Orders Name Type Priority Associated Diagnoses Orde r Schedule XR Knee Bilateral AP Standing Imaging Routine Chronic pain of both knees Once for 1 Occurrences starting 12/02/2024 until 12/02/2024 documented as of this encounter Visit Diagnoses Diagnosis Chronic pain of both knees documented in this encounter Care Teams Sleeper Cutter Relationship Specialty Start Date End Date Sumanth Wilson MD [address] [place] [address] PCP - General Family Medicine 02/21/22 documented as of this encounter
--- OUTSIDE RECORDS SUMMARY | 2024-12-02 11:27 | XMS_ITS | Encounter Summary ---
[facility] Address [address] [place] [address] Care Team Providers Care Industrial Maintenance Instructor Name Role Phone Sumanth Wilson MD Primary Care Provider + Encounter Details Date Type Department Care Team (Late st Contact Info) Description 08/30/2024 Results Follow-Up [facility] [address] [facility] [place] [address] Sumanth Wilson MD [address] [facility] [place] [address] Social History Tobacco Use Types Packs/Day [...] Description 03/03/2025 11:45 AM EST Office Visit [facility] [address] [place] [address] Sumanth Wilson MD [address] [place] [address] documented as of this encounter Visit Diagnoses Not on filedocumented in this encounter Care Teams Industrial Maintenance Instructor Relationship Specialty Start Date End Date Sumanth Wilson MD [address] [place] [address] PCP - General Family Medicine 02/21/22 documented as of this encounter
--- OUTSIDE RECORDS SUMMARY | 2024-12-02 11:27 | XMS_ITS | Clinical Summary ---
[facility] Address [address] [place] [address] Care Team Providers Care Director Building Name Role Phone Sumanth Wilson MD Primary Care Provider + Allergies No known active allergies Medications metFORMIN (GLUCOPHAGE) 1000 MG tabletIndication s:Type 2 diabetes mellitus with hyperglycemia, without long-term current use of insulin Take 1 tablet by mouth 2 (Two) Times a Day With Meals. 180 tablet 3 08/27/19 24 Active Additional Information Patient taking differently:1,000 mg Oral 2 Times Daily With Meals,Takes once daily, Reported on 12/02/2024 gabapentin (NEURONTIN) 100 MG capsuleIndicatio ns:Chronic bilateral low back pain with bilateral sciatica Take 1 capsule by mouth 3 (Three) Times a Day. 90 capsule 5 08/30/19 25 Active glyburide (DIAbeta) 5 MG tabletIndication s:Type 2 diabetes mellitus with hyperglycemia, without long-term current use of insulin Take 2 tablets by mouth Daily With Breakfast. 180 tablet 1 08/30/19 25 Active meloxicam (MOBIC) 15 MG tabletIndication s:Chronic bilateral low back pain with bilateral sciatica Take 1 tablet by mouth Daily. 90 tablet 1 08/30/19 25 Active ibuprofen (ADVIL,MOTRIN) 800 MG tablet Take 1 tablet by mouth Every 6 (Six) Hours As Needed for Mild Pain. 90 tablet 09/17/19 25 Active Additional Information Patient not taking.Reported on 12/02/2024 empagliflozin (Jardiance) 25 MG tablet tabletIndication s:Type 2 diabetes mellitus with hyperglycemia, without long-term current use of insulin Take 1 tablet by mouth Daily. 30 tablet 2 08/22/20 25 Active pioglitazone (Actos) 15 MG tabletIndication s:Type 2 diabetes mellitus with hyperglycemia, without long-term current use of insulin Take 1 tablet by mouth Daily. 30 tablet 2 12/03/19 25 Active hydroCHLOROthiaz rodrigo 25 MG tabletIndication s:Primary hypertension Take 1 tablet by mouth Every Morning. 90 tablet 1 12/03/19 25 Active losartan (COZAAR) 100 MG tabletIndication s:Primary hypertension Take 1 tablet by mouth Daily. 90 tablet 1 12/03/19 25 Active atorvastatin (LIPITOR) 10 MG tabletIndication s:Type 2 diabetes mellitus with hyperglycemia, without long-term current use of insulin Take 1 tablet by mouth Daily. 90 tablet 3 12/03/19 25 Active carvedilol (COREG) 12.5 MG tabletIndication s:Primary hypertension Take 1 tablet by mouth 2 (Two) Times a Day With Meals. 180 tablet 1 12/03/19 25 Active empagliflozin (Jardiance) 10 MG tablet tabletIndication s:Type 2 diabetes mellitus with hyperglycemia, without long-term current use of insulin Take 1 tablet by mouth Daily. 90 tablet 1 02/29/20 24 025 Discontin ued(Reord er) atorvastatin (LIPITOR) 10 MG tabletIndication s:Type 2 diabetes mellitus with hyperglycemia, without long-term current use of insulin Take 1 tablet by mouth Daily. 90 tablet 3 02/29/20 24 025 Discontin ued(Reord er) carvedilol (COREG) 12.5 MG tabletIndication s:Primary hypertension Take 1 tablet by mouth 2 (Two) Times a Day With Meals. 180 tablet 1 08/30/19 25 025 Discontin ued(Reord er) hydroCHLOROthiaz rodrigo 25 MG tabletIndication s:Primary hypertension Take 1 tablet by mouth Every Morning. 90 tablet 1 08/30/19 25 025 Discontin ued(Reord er) losartan (COZAAR) 100 MG tabletIndication s:Primary hypertension Take 1 tablet by mouth Daily. 90 tablet 1 08/30/19 25 025 Discontin ued(Reord er) Active Problems Problem Noted Date Diagnosed Date [...] to patient's pharmacy. If not covered then Farxiga will be used as there is a patient assistance program for Farxiga. Diabetes will be reassessed in 6 months. [...] Encounters Date Type Department Care Team Description 12/02/2024 10:15 AM EDT Hospital Encounter [facility] [place] [address] [place] [address] Chronic pain of both knees 12/02/2024 9:45 AM EDT Office Visit [facility] [address] [place], [place] [address] Sumanth Wilson MD Type 2 diabetes mellitus with hyperglycemia, without long-term current use of insulin (Primary Dx); Hereditary hemochromatosis; Primary hypertension; Chronic pain of both knees 12/02/2024 Travel 09/16/2024 Telephone [facility] [address] [place], [place] [address] Sumanth Wilson MD New Med Request [...] Orientation Straight 08/22/2024 9: 10 PM EDT Last Filed Vital Signs Vital [...] Mass Index 36.51 12/02/2024 9:28 AM EDT Plan of Treatment Upcoming Encounters Date Type Department Care Team (Late st Contact Info) Description 03/03/2025 11:45 AM EST Office Visit [facility] [address] [facility] [place] [address] Sumanth Wilson MD [address] [place] [address] Health Maintenance Due Date Last Done Comments COLOGUARD 11/02/1999 COLON CANCER SCREENING 5 YEAR SIGMOIDOSCOPY 11/02/1999 COLONOSCOPY 11/02/1999 COLORECTAL CANCER SCREENING 11/02/1999 CT COLONOGRAPHY 11/02/1999 FECAL OCCULT BLOOD TEST 11/02/1999 FIT Testing (1 year) 11/02/1999 DIABETIC FOOT EXAM 08/26/2023 08/25/2022, 0 08/25/2022, 08/25/2022 COVID-19 Vaccine ( season) 2024 01/28/2024, 01/13/2023, 02/04/2022, Additional history exists Postponed from 07/28/2024 (Product Unavailable) INFLUENZA VACCINE 01/11/2025 01/28/2024, , 12/25/2022, Additional history exists DIABETIC EYE EXAM 01/14/2025 01/15/2024, , 02/21/2020 HEMOGLOBIN A1C 06/04/2025 12/02/2024, 08/11, 02/29/2024, Additional history exists ANNUAL WELLNESS VISIT 08/29/2025 08/29/2024 , 08/29/2024, 02/26/2023 URINE MICROALBUMIN-CREATININE RATIO (uACR) 08/29/2025 08/29/2024 TDAP/TD VACCINES (2 - Td or Tdap) 02/25/2028 02/24/2018 AAA SCREEN ONCE Completed 02/29/2020, 02/29/2020 Pneumococcal Vaccine 50+ Completed 022, 12/11/2019, 02/24/2018 ZOSTER VACCINE Completed 09/25/2022, 07/24/2022 HEPATITIS C SCREENING Discontinued Procedures Procedure Name Priority Date/Time Associated Diagnosis Comments POCT GLYCOSYLATED HEMOGLOBIN (HGB A1C) Routine 12/02/2024 9:40 AM EDT Type 2 diabetes mellitus with hyperglycemia, without long-term current use of insulin SCANNED - LABS 12/01/2024 SCANNED - LABS 12/01/2024 SCANNED - LABS 10/03/2024 SCANNED - LABS 10/03/2024 POC ALBUMIN/CREATININE RATIO Routine 08/29/2024 4:02 PM EDT Type 2 diabetes mellitus with hyperglycemia, without long-term current use of insulin from Last 3 Months or Most Recently Relevant to Health Maintenance Results * (ABNORMAL) POC Glycosylated Hemoglobin (Hb A1C) (12/02/2024 9:40 AM EDT) Hemoglobin A1C 8.4(A) 4.5 - 5.7 % [facility] Lot Number [id number] [facility] Expiration Date 07/27/2026 [facility] Blood 12/02/2024 9:40 AM EDT us Sumanth Wilson MD POINT OF CARE TEST ORDER AIME Final Result [facility]
[address] [place] [address], * LABS SCANNED (12/01/2024) Only the most recent of4 resultswithin the time period is included. Sumanth [...] OF CARE TEST ORDER AIME Final Result from Last 3 Months or Most Recently Relevant to Health Maintenance Insurance [facility] MEDICARE A & B Care Teams Director Building Relationship Specialty Start Date End Date Sumanth Wilson MD [address] [place] [address] [place] [address] PCP - General Family Medicine 02/21/22
--- OUTSIDE RECORDS SUMMARY | 2024-12-02 11:27 | XMS_ITS | Encounter Summary ---
[facility] Address [address] [place] [address] Care Team Providers Care Fit Model Name Role Phone Sumanth Wilson MD Primary Care Provider + Encounter Details Date Type Department Care Team (Latest Contact Info) Description 12/02/2024 Travel Social History Tobacco Use Types Packs/Day Years [...] Description 03/03/2025 11:45 AM EST Office Visit [facility] [address] [facility] [place] [address] Sumanth Wilson MD [address] [place] [address] documented as of this encounter Visit Diagnoses Not on filedocumented in this encounter Care Teams Fit Model Relationship Specialty Start Date End Date Sumanth Wilson MD [address] [facility] [place] [address] PCP - General Family Medicine 02/21/22 documented as of this encounter
[2024-12-02 11:30] VITALS: BP 131/71; PULSE 72; RESP 18; O2SAT 95
[2024-12-02 11:47] VITALS: BP 133/64; PULSE 68; RESP 18; O2SAT 96
== END 2024-12-02 11:47 | disposition home or self-care (01) ==
LOC: INF 11:25
PROVIDERS: PCP Family Medicine; Visit Provider Family Medicine
DX: E83.110 Hereditary hemochromatosis (principal)
CPT/HCPCS: 99195; 99211; G0463

== ENCOUNTER 2024-12-09 09:52 | Outpatient (CLI) | payer MEDICARE, BC, SELFPAY ==
--- OUTSIDE RECORDS SUMMARY | 2024-12-02 09:45 | XMS_ITS | Encounter Summary ---
Author Organization [facility] Address [address] [place] [address] Care Team Providers Care Nutrition Tech Name Role Phone Sumanth Wilson MD Primary Care Provider + Reason for Referral * Consultation (Routine) - Authorized Specialty Diagnoses / Procedures Referred By Contac t Referred To Contact Orthopedic Surgery Diagnoses Chronic pain of both knees Sumanth Wilson MD [facility] [place] [address] Phone: tel: fax: [facility] [address] [place] [address] Phone: tel: fax: Referral ID Status Reason Start Date Expiration Date Visits Requested Visits Authorized Authorized Specialty Services Required 12/02/2024 03/03/2026 1 1 * Diagnostic Imaging (Routine) - Closed Specialty Diagnoses / Procedures Referred By Contac t Referred To Contact Radiology Diagnoses Chronic pain of both knees Procedures XR Knee Bilateral AP Standing Sumanth Wilson MD [facility] [place] [address] Phone: tel: fax: Referral ID Status Reason Start Date Expiration Date Visits Re quested Visits Authorized Closed 12/02/2024 03/03/2026 1 1 * Diagnostic Imaging (Routine) - Authorized Specialty Diagnoses / Procedures Referred By Contac t Referred To Contact Radiology Diagnoses Chronic pain of both knees Procedures XR Knee 3 View Right Sumanth Wilson MD [address] [place] [address] Phone: tel: fax: Referral ID Status Reason Start Date Expiration Date V isits Requested Visits Authorized Authorized 12/02/2024 03/03/2026 1 1 * Diagnostic Imaging (Routine) - Authorized Specialty Diagnoses / Procedures Referred By Contac t Referred To Contact Radiology Diagnoses Chronic pain of both knees Procedures XR Knee 3 View Left Sumanth Wilson MD [address] [place] [address] Phone: tel: fax: Referral ID Status Reason Start Date Expiration Date V isits Requested Visits Authorized Authorized 12/02/2024 03/03/2026 1 1 Reason for Visit * Reason Comments Follow-up Diabetes Hypertension bilateral knee pain Worse with climbing Encounter Details Date Type Department Care Team (Late st Contact Info) Description 12/02/2024 9:45 AM EDT Office Visit [facility] [address] [place] [address] Sumanth Wilson MD [address] [address] Type 2 diabetes mellitus with hyperglycemia, without long-term current use of insulin (Primary Dx); Hereditary hemochromatosis; Primary hypertension; Chronic pain of both knees Social History Tobacco Use Types Packs/Day Years [...] PM EDT documented as of this encounter Last Filed Vital Signs Vital Sign Reading Time Taken Comments Blood Pressure 140/80 12/02/2024 9:28 AM EDT Pulse 78 12/02/2024 9:28 AM EDT Temperature 36.7 C (98.1 F) 12/02/2024 9:28 AM EDT Respiratory Rate 20 12/02/2024 9:28 AM EDT Oxygen Saturation 97% 12/02/2024 9:28 AM EDT Inhaled Oxygen Concentration - - Weight 112 kg (247 lb 3.2 oz) 12/02/2024 9:28 AM EDT Height 175.3 cm (5' 9 ) 12/02/2024 9:28 AM EDT Body Mass Index 36.51 12/02/2024 9:28 AM EDT documented in this encounter Progress Notes * Sumanth Wilson MD - 12/02/2024 9:45 AM EDT Images from the original note were not included. Chief Complaint Patient presents with Follow-up Diabetes Hypertension bilateral knee pain Worse with climbing Subjective Arnold Parham is a 69 y.o. who presents for chronic care and new complaint of bilateral knee pain. Diabetes. He does not check blood sugars. While metformin is prescribed twice daily he never remembers to take the second dose. At his last visit A1c was surprisingly elevated and part of the change was attributed to his hemochromatosis. It was anticipated he would undergo phlebotomy prior to today's visit but this has not occurred. Hypertension. Patient does not monitor blood pressure at home but takes medications as prescribed. Bilateral knee pain. This is a new complaint. Pain is noticeable with prolonged sitting, climbing ladders, ascending and descending stairs. He describes a sensation of weakness in the knees. He has found ways to alleviate some of the pain such as wearing kneepads if he is doing work that requires crawling on his knees. He is very much limiting his activities however due to the pain. Ibuprofen has been used for short-term courses but has to be avoided due to his hypertension and risk of renal problems. Hereditary hemochromatosis. He continues surveillance ferritin and H&H. Plans for phlebotomy are later today The following portions of the patient's history were reviewed and updated as appropriate: allergies, current medications, past family history, past medical history, past social history, past surgicalhistory, and problem list. Review of Systems Objective Vital Signs: BP 140/80 Pulse 78 Temp 98.1 ??F (36.7 ??C) Resp 20 Ht 175.3 cm (69 ) Wt 112 kg (247 lb 3.2 oz) SpO2 97% BMI 36.51 kg/m?? Physical Exam Constitutional: Appearance: Normal appearance. HENT: Head: Normocephalic and atraumatic. Right Ear: Tympanic membrane and ear canal normal. Left Ear: Tympanic membrane and ear canal normal. Nose: Nose normal. Mouth/Throat: Mouth: Mucous membranes are moist. Pharynx: Oropharynx is clear. Eyes: Conjunctiva/sclera: Conjunctivae normal. Cardiovascular: Rate and Rhythm: Normal rate and regular rhythm. Heart sounds: Normal heart sounds. No murmur heard. Pulmonary: Effort: Pulmonary effort is normal. No respiratory distress. Breath sounds: Normal breath sounds. Musculoskeletal: Cervical back: Normal range of motion and neck supple. No tenderness. Right knee: Crepitus present. Left knee: Crepitus present. Lymphadenopathy: Cervical: No cervical adenopathy. Skin: General: Skin is warm and dry. Neurological: Mental Status: He is alert. Psychiatric: Mood and Affect: Mood normal. Result Review The following data was reviewed by: Sumanth Wilson MD on 12/02/2024: A1C Last 3 Results 02/29/2024 14:22 08/29/2024 14:43 12/02/2024 09:40 HGBA1C Last 3 Results Hemoglobin A1C 7.0 8.5 8.4 Assessment and Plan Diagnoses and all orders for this visit: 1. Type 2 diabetes mellitus with hyperglycemia, without long-term current use of insulin (Primary) Comments: DM remains uncontrolled. Start pioglitazone 15 mg in addition to Jardiance and metformin. Reassess in 3 months. A1c would likely benefit from phlebotomy Orders: - POC Glycosylated Hemoglobin (Hb A1C) - empagliflozin (Jardiance) 25 MG tablet tablet; Take 1 tablet by mouth Daily. Dispense: 30 tablet;Refill: 2 - pioglitazone (Actos) 15 MG tablet; Take 1 tablet by mouth Daily. Dispense: 30 tablet; Refill: 2 - atorvastatin (LIPITOR) 10 MG tablet; Take 1 tablet by mouth Daily. Dispense: 90 tablet; Refill: 3 2. Hereditary hemochromatosis Comments: Continue phlebotomy as needed 3. Primary hypertension Comments: Blood pressure is stable. Continue losartan, HCTZ, carvedilol Orders: - hydroCHLOROthiazide 25 MG tablet; Take 1 tablet by mouth Every Morning. Dispense: 90 tablet; Refill: 1 - losartan (COZAAR) 100 MG tablet; Take 1 tablet by mouth Daily. Dispense: 90 tablet; Refill: 1 - carvedilol (COREG) 12.5 MG tablet; Take 1 tablet by mouth 2 (Two) Times a Day With Meals. Dispense: 180 tablet; Refill: 1 4. Chronic pain of both knees Comments: New problem. X-rays will be obtained and patient will be referred to orthopedics for potential viscosupplementation Orders: - XR Knee 3 View Left; Future - XR Knee 3 View Right; Future - XR Knee Bilateral AP Standing; Future - Ambulatory Referral to Orthopedic Surgery Follow Up Return in about 3 months (around 03/04/2025) for Next scheduled follow up Chronic Care. Patient was given instructions and counseling regarding his condition or for health maintenance advice. Please see specific information pulled into the AVS if appropriate. documented in this encounter Plan of Treatment Upcoming Encounters Date Type Department Care Team (Late st Contact Info) Description 03/03/2025 11:45 AM EST Office Visit [facility] [address] [facility] [place] [phone] Sumanth Wilson MD [address] [place] [id number] Scheduled Orders Name Type Priority Associated Diagnoses Orde r Schedule XR Knee 3 View Left Imaging Routine Chronic pain of both knees Expected: 12/02/2024, Expires: 03/04/2026 XR Knee 3 View Right Imaging Routine Chronic pain of both knees Expected: 12/02/2024, Expires: 03/04/2026 Scheduled Referrals Name Type Priority Associated Diagnoses Order Schedule Ambulatory Referral to Orthopedic Surgery Outpatient Referral Routine Chronic pain of both knees Ordered: 12/02/2024 documented as of this encounter Procedures Procedure Name Priority Date/Time Associated Diagnosis Comments POCT GLYCOSYLATED HEMOGLOBIN (HGB A1C) Routine 12/02/2024 9:40 AM EDT Type 2 diabetes mellitus with hyperglycemia, without long-term current use of insulin documented in this encounter Results * XR Knee Bilateral AP Standing (12/02/2024 10:20 AM EDT) Anatomical Region Laterality Modality Lower Extremities, Knee Bilateral Radiogra phic Imaging 12/07/2024 3:06 PM EDT Impressions 12/07/2024 3:06 PM EDT Impression: Moderate tricompartment degenerative arthrosis. Electronically Signed: Aaron Andrew MD 12/07/2024 3:06 PM EDT Workstation ID: [id number] Narrative 12/07/2024 3:06 PM EDT XR KNEE BILATERAL AP STANDING Date of Exam: 12/02/2024 10:20 AM EDT Indication: bilateral knee pain, worse with ladders and steps. Comparison: None available. Findings: No evidence of acute fracture nor dislocation. Alignment is normal. Moderate tricompartment degenerative arthrosis most pronounced in the medial and patellofemoral compartments bilaterally. Soft tissues are unremarkable. Procedure Note Aaron Andrew MD - 12/07/2024 XR KNEE BILATERAL AP STANDING Date of Exam: 12/02/2024 10:20 AM EDT Indication: bilateral knee pain, worse with ladders and steps. Comparison: None available. Findings: No evidence of acute fracture nor dislocation. Alignment is normal.Moderate tricompartment degenerative arthrosis most pronounced in themedial and patellofemoral compartments bilaterally. Soft tissues areunremarkable. IMPRESSION: Impression: Moderate tricompartment degenerative arthrosis. Electronically Signed: Aaron Andrew MD 12/07/2024 3:06 PM EDT Workstation ID: [id number] us Sumanth Wilson MD [facility] DIAGNOST[facility] IMAGING O RDERABLES Final Result * (ABNORMAL) POC Glycosylated Hemoglobin (Hb A1C) (12/02/2024 9:40 AM EDT) Hemoglobin A1C 8.4(A) 4.5 - 5.7 % [facility] Lot Number [id number] [facility] Expiration Date 07/27/2026 [facility] Blood 12/02/2024 9:40 AM EDT Sumanth Wilson MD POINT OF CARE TEST ORDER AIME Final Result [facility]
[address] [place] [address], documented in this encounter Visit Diagnoses Diagnosis Type 2 diabetes mellitus with hyperglycemia, without long-term current use of insulin- Primary Hereditary hemochromatosis Primary hypertension Unspecified essential hypertension Chronic pain of both knees Chronic pain of both knees documented in this encounter Care Teams Nutrition Tech Relationship Specialty Start Date End Date Sumanth Wilson MD [address] [place] [id number] PCP - General Family Medicine 02/21/22 documented as of this encounter
--- OUTSIDE RECORDS SUMMARY | 2024-12-02 10:15 | XMS_ITS | Encounter Summary ---
[facility] Address [address] [place] [address] Care Team Providers Care Special Education Professor Name Role Phone Sumanth Wilson MD Primary Care Provider + Reason for Referral * Diagnostic Imaging (Routine) - Closed Specialty Diagnoses / Procedures Referred By Contac t Referred To Contact Radiology Diagnoses Chronic pain of both knees Procedures XR Knee Bilateral AP Standing Sumanth Wilson MD [facility] [place] [address] Phone: tel: fax: Referral ID Status Reason Start Date Expiration Date Visits Re quested Visits Authorized Closed 12/02/2024 03/03/2026 1 1 Reason for Visit * Diagnostic Imaging (Routine) - Closed Specialty Diagnoses / Procedures Referred By Contac t Referred To Contact Radiology Diagnoses Chronic pain of both knees Procedures XR Knee Bilateral AP Standing Sumanth Wilson MD [facility] [place] [address] Phone: tel: fax: Referral ID Status Reason Start Date Expiration Date Visits Re quested Visits Authorized Closed 12/02/2024 03/03/2026 1 1 Encounter Details Date Type Department Care Team (Latest Contact Info) Description 12/02/2024 10:15 AM EDT - 12/02/2024 11:59 PM EDT Hospital Encounter [facility] [place] [address] [facility] [place] [address] Sumanth Wilson MD [address] [place] [address] Chronic pain of both knees Discharge Disposition: Home or Self Care Social History Tobacco Use Types Packs/Day Years [...] PM EDT documented as of this encounter Medications at Time of Discharge atorvastatin (LIPITOR) 10 MG tabletIndications: Type 2 diabetes mellitus with hyperglycemia, without long-term current use of insulin Take 1 tablet by mouth Daily. 90 tablet 3 12/02/2024 carvedilol (COREG) 12.5 MG tabletIndications: Primary hypertension Take 1 tablet by mouth 2 (Two) Times a Day With Meals. 180 tablet 1 12/02/2024 empagliflozin (Jardiance) 25 MG tablet tabletIndications: Type 2 diabetes mellitus with hyperglycemia, without long-term current use of insulin Take 1 tablet by mouth Daily. 30 tablet 2 12/02/2024 gabapentin (NEURONTIN) 100 MG capsuleIndications :Chronic bilateral low back pain with bilateral sciatica Take 1 capsule by mouth 3 (Three) Times a Day. 90 capsule 5 08/29/2024 glyburide (DIAbeta) 5 MG tabletIndications: Type 2 diabetes mellitus with hyperglycemia, without long-term current use of insulin Take 2 tablets by mouth Daily With Breakfast. 180 tablet 1 08/29/2024 hydroCHLOROthiazid e 25 MG tabletIndications: Primary hypertension Take 1 tablet by mouth Every Morning. 90 tablet 1 12/02/2024 ibuprofen (ADVIL,MOTRIN) 800 MG tablet Take 1 tablet by mouth Every 6 (Six) Hours As Needed for Mild Pain. 90 tablet 09/16/2024 losartan (COZAAR) 100 MG tabletIndications: Primary hypertension Take 1 tablet by mouth Daily. 90 tablet 1 12/02/2024 meloxicam (MOBIC) 15 MG tabletIndications: Chronic bilateral low back pain with bilateral sciatica Take 1 tablet by mouth Daily. 90 tablet 1 08/29/2024 metFORMIN (GLUCOPHAGE) 1000 MG tabletIndications: Type 2 diabetes mellitus with hyperglycemia, without long-term current use of insulin Take 1 tablet by mouth 2 (Two) Times a Day With Meals. 180 tablet 3 08/27/2023 pioglitazone (Actos) 15 MG tabletIndications: Type 2 diabetes mellitus with hyperglycemia, without long-term current use of insulin Take 1 tablet by mouth Daily. 30 tablet 2 12/02/2024 documented as of this encounter Plan of Treatment Upcoming Encounters Date Type Department Care Team (Late st Contact Info) Description 03/03/2025 11:45 AM EST Office Visit [facility] [address] [place] [address] Sumanth Wilson MD [address] [place] [address] documented as of this encounter Procedures Procedure Name Priority Date/Time Associated Diagnosis Comments XR KNEE BILATERAL AP STANDING Routine 12/02/2024 10:20 AM EDT Chronic pain of both knees documented in this encounter Results * XR Knee Bilateral AP Standing (12/02/2024 10:20 AM EDT) Anatomical Region Laterality Modality Lower Extremities, Knee Bilateral [facility] 12/07/2024 3:06 PM EDT Impressions 12/07/2024 3:06 PM EDT Impression: Moderate tricompartment degenerative arthrosis. Electronically Signed: Aaron Andrew MD 12/07/2024 3:06 PM EDT Workstation ID: [id number] Narrative 12/07/2024 3:06 PM EDT XR KNEE [...] MD 12/07/2024 3:06 PM EDT Workstation ID: [id number] us Sumanth Wilson MD IMG DIAGNOSTIC IMAGING O RDERABLES Final Result documented in this encounter Visit Diagnoses Diagnosis Chronic pain of both knees documented in this encounter Care Teams Special Education Professor Relationship Specialty Start Date End Date Sumanth Wilson MD [address] [place] [id number] PCP - General Family Medicine 02/21/22 documented as of this encounter
--- OUTSIDE RECORDS SUMMARY | 2024-12-09 09:54 | XMS_ITS | Clinical Summary ---
[facility] Address [address] [place] [address] Care Team Providers Care Forecast Analyst Name Role Phone Sumanth Wilson MD Primary [...] Encounters Date Type Department Care Team Description 12/08/2024 Results Follow-Up [facility] [address] [place] [address] Sumanth Wilson MD 12/02/2024 10:15 AM EDT - 12/02/2024 11:59 PM EDT Hospital Encounter [facility] [place] [address] [place] [address] Sumanth Wilson MD Chronic pain of both knees Discharge Disposition: Home or Self Care 12/02/2024 9:45 AM EDT Office Visit [facility] [address] [place] [address] Sumanth Wilson MD Type 2 diabetes mellitus with hyperglycemia, without long-term current use of insulin (Primary Dx); Hereditary hemochromatosis; Primary hypertension; Chronic pain of both knees 12/02/2024 Travel 09/16/2024 Telephone [facility] [address] [place] [address] Sumanth Wilson MD New Med Request [...] Description 03/03/2025 11:45 AM EST Office Visit [facility] [address] [facility] [place] [address] Sumanth Wilson MD [address] [facility] [place] [address] Health Maintenance Due Date Last [...] AM EDT Chronic pain of both knees POCT GLYCOSYLATED HEMOGLOBIN (HGB A1C) Routine 12/02/2024 9:40 AM EDT Type 2 diabetes mellitus with hyperglycemia, without long-term current use of insulin SCANNED - LABS 12/02/2024 SCANNED - LABS 12/01/2024 SCANNED - LABS 12/01/2024 SCANNED - LABS 10/03/2024 SCANNED - LABS 10/03/2024 POC ALBUMIN/CREATININE RATIO Routine 08/29/2024 4:02 PM EDT Type 2 diabetes mellitus with hyperglycemia, without long-term current use of insulin from Last 3 Months or Most Recently Relevant to Health Maintenance Results * XR Knee Bilateral AP Standing (12/02/2024 10:20 AM EDT) Anatomical Region Laterality Modality Lower Extremities, Knee Bilateral Radiogra phic Imaging 12/07/2024 3:06 PM EDT Impressions 12/07/2024 3:06 PM EDT Impression: Moderate tricompartment degenerative arthrosis. Electronically Signed: Aaron Andrew MD 12/07/2024 3:06 PM EDT Workstation ID: [id number] Narrative 12/07/2024 3:06 PM EDT XR KNEE [...] MD 12/07/2024 3:06 PM EDT Workstation ID: [id number] Sumanth Wilson MD IMG DIAGNOSTIC IMAGING O RDERABLES Final Result * (ABNORMAL) POC Glycosylated Hemoglobin (Hb A1C) (12/02/2024 9:40 AM EDT) Hemoglobin A1C 8.4(A) 4.5 - 5.7 % [facility] Lot Number [id number] [facility] Expiration Date 07/27/2026 [facility] Blood 12/02/2024 9:40 AM EDT Sumanth Wilson MD POINT OF CARE TEST ORDER AIME Final Result [facility]
[address] [place] [address], * LABS SCANNED (12/02/2024) Only the most recent of5 resultswithin the time period is included. Sumanth [...] Most Recently Relevant to Health Maintenance Insurance [facility] MEDICARE A & B Care Teams Forecast Analyst Relationship Specialty Start Date End Date Sumanth Wilson MD [address] [place] [address] PCP - General Family Medicine 02/21/22
--- OUTSIDE RECORDS SUMMARY | 2024-12-09 09:54 | XMS_ITS | Encounter Summary ---
[facility] Address [address] [place] [address] Care Team Providers Care Process Manager Name Role Phone Sumanth Wilson MD Primary [...] Description 03/03/2025 11:45 AM EST Office Visit [facility] [address] [facility] [place] [address] Sumanth Wilson MD [address] [place] [address] documented as of this encounter Visit Diagnoses Not on filedocumented in this encounter Care Teams Process Manager Relationship Specialty Start Date End Date Sumanth Wilson MD [address] [facility] [address] PCP - General Family Medicine 02/21/22 documented as of this encounter
--- OUTSIDE RECORDS SUMMARY | 2024-12-09 09:54 | XMS_ITS | Encounter Summary ---
[facility] Organization [facility] Address [address] [place] [address] Care Team Providers Care General Repairer Name Role Phone Sumanth Wilson MD Primary Care Provider + Encounter Details Date Type Department Care Team (Late st Contact Info) Description 12/08/2024 Results Follow-Up [facility] [address] [facility] [place] [address] Sumanth Wilson MD [address] [facility] [place] [address] Social History Tobacco Use Types Packs/Day [...] Description 03/03/2025 11:45 AM EST Office Visit [facility] [address] [place] [address] Sumanth Wilson MD [address] [place] [address] documented as of this encounter Visit Diagnoses Not on filedocumented in this encounter Care Teams General Repairer Relationship Specialty Start Date End Date Sumanth Wilson MD [address] [place] [address] PCP - General Family Medicine 02/21/22 documented as of this encounter
--- OUTSIDE RECORDS SUMMARY | 2024-12-09 09:55 | XMS_ITS | Encounter Summary ---
[facility] [address] [place] [address] Care Team Providers Care Senior Consulting Manager Name Role Phone Sumanth Wilson MD Primary Care Provider + Encounter Details Date Type Department Care Team (Late st Contact Info) Description 08/30/2024 Results Follow-Up [facility] [address] [facility] [place] [address] Sumanth Wilson MD 210 [facility] [address] Social History Tobacco Use Types Packs/Day [...] Description 03/03/2025 11:45 AM EST Office Visit [facility] [address] [place] [address] Sumanth Wilson MD [address] [place] [address] documented as of this encounter Visit Diagnoses Not on filedocumented in this encounter Care Teams Senior Consulting Manager Relationship Specialty Start Date End Date Sumanth Wilson MD [address] [place] [address] PCP - General Family Medicine 02/21/22 documented as of this encounter
--- NOTE | 2024-12-09 09:58 | PC.NURSE ---
0958-collected labs via venipuncture stick
[2024-12-09 10:10] LABS: Hematocrit 44.2 % (42.0-52.0); Hemoglobin 15.5 g/dL (14.1-18.0)
[2024-12-09 10:15] VITALS: BP 159/83; PULSE 77; RESP 18; O2SAT 95
[2024-12-09 10:30] VITALS: BP 165/73; PULSE 76; RESP 18; O2SAT 95
[2024-12-09 10:56] LABS: Ferritin 80.3 ng/ml (17.9-464)
== END 2024-12-09 10:30 | disposition home or self-care (01) ==
LOC: INF 09:53
PROVIDERS: PCP Family Medicine; Visit Provider Family Medicine
DX: E83.110 Hereditary hemochromatosis (principal)
CPT/HCPCS: 36415; 82728; 85014; 85018; 99195

== ENCOUNTER 2025-02-10 10:31 | Outpatient (CLI) | payer MEDICARE, BC, SELFPAY ==
--- OUTSIDE RECORDS SUMMARY | 2025-02-10 10:35 | XMS_ITS | Data Portability ---
Author Organization [facility] Address [address] [facility] [address] [place] [address] Care Team Providers Care Reinforcing Steel Machine Operator Name Role Phone MEHNAZ SANDERS Primary Care [...] symptoms for consideration of more aggressive treatment. [email or web address] Not available 04/20/2020 13:42:20 Plan of Treatment [...] By Organization Details Last Modified Time 04/20/2020 [id number] MRI CD-ROM [facility]: Moderate spinal stenosis L3-4 with a subtle underlying spondylolisthesis, facet arthropathy and facet hyperintensity Spent 45 total minutes with the patient today. Greater than 50% of this time was spent counseling/coordin ation of care as documented in my assessment and plan above. [email or web address] Not available 04/20/2020 13:42:53 Reason for Referral None Reported. Results Created Date Observation Date Name Description Value Unit Range Abnormal Flag Note LastModifiedBy Organization Detail LastModifiedTime 04/20/19 21 04/20/2020 XR, lumbo sacra l spine , 2 or 3 view, bendi ng only [place] [facility] [address] [place] [address] Garett randolph Name: ARNOLD randolph : 89 [...] Gooden MD on 04/20/19 21 2:11 PM [facility] [address], [address], 04/24/2020 11:38:18 04/23/19 21 02/29/2020 MRI, lumba [...] 2 Or 3 View, Bending Only : [address] [address] Patient Name: ARNOLD PARHAM Patient : 1955 [...] Interpreted By: Skip Gooden MD [facility] 04/24/2020 11:38:18 Procedures Surgical History Date Name Laterality Status Provider Name and Address Organization Details Recorded Time appendectomy completed Delisa FRANKLIN [facility] 04/20/2020 13:34:28 Imaging Results None recorded. [...] Date Recorded Heart rate Body weight Systolic And Diastolic Provider Name and Address Organization Details Last Updated DateTime 04/20/2020 80 /min 469326.87 g 150/82 mm[Hg] Delisa Sherman [facility] 04/20/2020 13:13:21 Social History Question Answer Notes LastModified by Organizat ion Details LastModified Time Tobacco Smoking Status Former Smoker Delisa Sherman [facility] 04/20/2020 13:31:32 How Much Tobacco [...] Diagnosis SNOMED-CT Code Diagnosis ICD10 Code Diagnosis IMO Codes Diagnosis Note [id number] MARCELINO SAM MD [facility] [address] [place] [address] 04/20/2020 12:06:18 04/20/2020 13:49:13 Spinal stenosis of lumbar region [id number] M48.062 -The patient presents for evaluation of [...] Will Member ID Guarantor Name 04/23/2020 2 [place] [id number] Arnold Parham [id number] Arnold Parham 04/20/2020 1 [place] Arnold Parham [id number] Arnold Parham Notes Date Note Type Note Provider Name and Address Organization Details Recorded Time 04/20/2020 text/html ROS as noted in the HPI The patient was seen at the request [...] weakness has improved MARCELINO SAM MD [address] [place], [address], [facility] 04/20/2020 13:43:26
--- NOTE | 2025-02-10 10:37 | PC.NURSE ---
1037-collected labs via venipuncture stick in left forearm with butterfly needle;pt to wait on results for possible therapeutic phlebotomy if ferritin >75.
[2025-02-10 10:46] LABS: Hematocrit 50.4 % (42.0-52.0); Hemoglobin 17.1 g/dL (14.1-18.0)
[2025-02-10 11:30] LABS: Ferritin 104 ng/ml (17.9-464)
[2025-02-10 11:50] VITALS: BP 138/67; PULSE 72; RESP 18; O2SAT 97
[2025-02-10 12:10] VITALS: BP 125/63; PULSE 75; RESP 18; O2SAT 95
== END 2025-02-10 23:59 | disposition home or self-care (01) ==
PROVIDERS: PCP Family Medicine; Visit Provider Family Medicine
DX: E83.119 Hemochromatosis, unspecified (principal)
CPT/HCPCS: 36415; 82728; 85014; 85018; 99195

== ENCOUNTER 2025-04-10 09:49 | Outpatient (CLI) | payer MEDICARE, BC, SELFPAY ==
--- OUTSIDE RECORDS SUMMARY | 2025-03-03 11:45 | XMS_ITS | Encounter Summary ---
Author Organization [facility] Address [address] [place] [address] Care Team Providers Care Sales Specialist Name Role Phone Sumanth Wilson MD Primary Care Provider + Reason for Visit * Reason Comments Follow-up Diabetes Encounter Details Date Type Department Care Team (Late st Contact Info) Description 03/03/2025 11:45 AM EST Office Visit [facility] [address] [place] [address] Sumanth Wilson MD [address] [place] [address] Type 2 diabetes mellitus with hyperglycemia, without long-term current use of insulin (Primary Dx); Need for immunization against influenza; Primary hypertension; Chronic bilateral low back pain with bilateral sciatica; Colon cancer screening Social History Tobacco Use Types Packs/Day Years [...] Orientation Straight 08/22/2024 9 :10 PM EDT documented as of this encounter Last Filed Vital Signs Vital Sign Reading Time Taken Comments Blood Pressure 150/80 03/03/2025 11:32 AM EST Pulse 78 03/03/2025 11:32 AM EST Temperature 36.2 C (97.1 F) 03/03/2025 11:32 AM EST Respiratory Rate 20 03/03/2025 11:32 AM EST Oxygen Saturation 95% 03/03/2025 11:32 AM EST Inhaled Oxygen Concentration - - Weight 114 kg (250 lb 12.8 oz) 03/03/2025 11:32 AM EST Height 175.3 cm (5' 9 ) 03/03/2025 11:32 AM EST Body Mass Index 37.04 03/03/2025 11:32 AM EST documented in this encounter Progress Notes * Sumanth Wilson MD - 03/03/2025 11:45 AM EST Images from the original note were not included. Chief Complaint Patient presents with Follow-up Diabetes Subjective Arnold Parham is a 69 y.o. who presents for chronic care of diabetes and hypertension. He is tolerating pioglitazone and denies swelling. He takes his medications as prescribed but does not monitor blood sugar or blood pressure. He is diet is full of processed foods. He received notification from his insurance that losartan would no longer be covered. Alternatives were listed but he does not recall names and did not bring the letter with him to the office. For his hemochromatosis he continues to get phlebotomy about every 2 months The following portions of the patient's history were reviewed and updated as appropriate: allergies, current medications, past family history, past medical history, past social history, past surgicalhistory, and problem list. Review of Systems Objective Vital Signs: BP 150/80 Pulse 78 Temp 97.1 ??F (36.2 ??C) Resp 20 Ht 175.3 cm (69 ) Wt 114 kg (250 lb 12.8 oz) SpO2 95% BMI 37.04 kg/m?? Physical Exam Vitals reviewed. Constitutional: Appearance: Normal appearance. Neurological: Mental Status: He is alert. Result Review The following data was reviewed by: Sumanth Wilson MD on 03/03/2025: Most Recent A1C 03/03/2025 11:42 HGBA1C Most Recent Hemoglobin A1C 7.5 Assessment and Plan Diagnoses and all orders for this visit: 1. Type 2 diabetes mellitus with hyperglycemia, without long-term current use of insulin (Primary) - POC Glycosylated Hemoglobin (Hb A1C) - pioglitazone (Actos) 15 MG tablet; Take 1 tablet by mouth Daily. Dispense: 90 tablet; Refill: 1 - empagliflozin (Jardiance) 25 MG tablet tablet; Take 1 tablet by mouth Daily. Dispense: 30 tablet; Refill: 5 2. Need for immunization against influenza - Fluzone High-Dose 65+yrs ([id number]) 3. Primary hypertension Comments: Blood pressure is stable. Continue losartan, HCTZ, carvedilol Orders: - carvedilol (COREG) 25 MG tablet; Take 1 tablet by mouth 2 (Two) Times a Day With Meals. Dispense:180 tablet; Refill: 1 - olmesartan (BENICAR) 40 MG tablet; Take 1 tablet by mouth Daily. Dispense: 90 tablet; Refill: 1 - hydroCHLOROthiazide 25 MG tablet; Take 1 tablet by mouth Every Morning. Dispense: 90 tablet; Refill: 1 4. Chronic bilateral low back pain with bilateral sciatica Comments: Stable. Continue gabapentin. Reassess in 6 months Orders: - gabapentin (NEURONTIN) 100 MG capsule; Take 1 capsule by mouth 3 (Three) Times a Day. Dispense: 90 capsule; Refill: 5 5. Colon cancer screening Comments: Patient declines any form of colon cancer testing. Plan 1. Diabetes control has improved and A1c is in acceptable range. Continue Actos 15 mg, metformin 1000 mg,Glyburide 10 mg, Jardiance 25 mg daily. Reassess every 6 months 2. Blood pressure is not at goal. Increase carvedilol to 25 mg twice daily and change losartan to olmesartan 40 mg. Reassess in 6 months 3. Flu vaccine given today 4. Patient's back pain may be slightly worsened compared to last assessment. He does not feel this is significant enough to change dosage of his gabapentin. Continue gabapentin 100 mg 3 times daily Follow Up Return in about 6 months (around 08/31/2025) for Medicare Wellness. Patient was given instructions and counseling regarding his condition or for health maintenance advice. Please see specific information pulled into the AVS if appropriate. documented in this encounter Plan of Treatment Upcoming Encounters Date Type Department Care Team (Late st Contact Info) Description 08/31/2025 10:15 AM EDT Office Visit [facility] [address] [place] [phone] Sumanth Wilson MD [address] [place] [address] documented as of this encounter Procedures Procedure Name Priority Date/Time Associated Diagnosis Comments POCT GLYCOSYLATED HEMOGLOBIN (HGB A1C) Routine 03/03/2025 11:42 AM EST Type 2 diabetes mellitus with hyperglycemia, without long-term current use of insulin documented in this encounter Results * (ABNORMAL) POC Glycosylated Hemoglobin (Hb A1C) (03/03/2025 11:42 AM EST) Hemoglobin A1C 7.5(A) 4.5 - 5.7 % [facility] Lot Number [id number] [facility] Expiration Date 09/09/2024 [facility] Blood 03/03/2025 11:4 2 AM EST us Sumanth Wilson MD POINT OF CARE TEST ORDER AIME Final Result [facility]
[address] [place] [address], documented in this encounter Visit Diagnoses Diagnosis Type 2 diabetes mellitus with hyperglycemia, without long-term current use of insulin- Primary Need for immunization against influenza Need for prophylactic vaccination and inoculation against influenza Primary hypertension Unspecified essential hypertension Chronic bilateral low back pain with bilateral sciatica Colon cancer screening Special screening for malignant neoplasms, colon documented in this encounter Care Teams Sales Specialist Relationship Specialty Start Date End Date Sumanth Wilson MD [address] [place] [address] PCP - General Family Medicine 02/21/22 documented as of this encounter
--- NOTE | 2025-04-10 09:54 | PC.NURSE ---
0950-collected labs via venipuncture stick in right forearm with butterfly needle;pt to wait on results for therapeutic phlebotomy if ferritin >75
--- OUTSIDE RECORDS SUMMARY | 2025-04-10 09:58 | XMS_ITS | Encounter Summary ---
Author Organization [facility] Address [address] [place] [address] Care Team Providers Care Aboriginal Ceremonial Celebrant Name Role Phone Sumanth Wilson MD Primary Care Provider + Encounter Details Date Type Department Care Team (Latest Contact Info) Description 03/03/2025 Travel Social History Tobacco Use Types Packs/Day [...] Description 08/31/2025 10:15 AM EDT Office Visit [facility] [address] [facility] [place] [address] Sumanth Wilson MD [address] [place] [address] documented as of this encounter Visit Diagnoses Not on filedocumented in this encounter Care Teams Aboriginal Ceremonial Celebrant Relationship Specialty Start Date End Date Sumanth Wilson MD [address] [facility] [place] [address] PCP - General Family Medicine 02/21/22 documented as of this encounter
--- OUTSIDE RECORDS SUMMARY | 2025-04-10 09:59 | XMS_ITS | Encounter Summary ---
Author Organization [facility] Address [address] [place] [address] Care Team Providers Care Intervention Manager Name Role Phone Sumanth Wilson MD Primary Care Provider + Reason for Visit * Reason Comments Med Refill Encounter Details Date Type Department Care Team (Late st Contact Info) Description 02/16/2025 Refill [facility] [address] [place] [address] Sumnath Wilson MD [address] [place] [address] Type 2 diabetes mellitus with hyperglycemia, without long-term current use of insulin Social History Tobacco Use Types Packs/Day Years [...] Description 08/31/2025 10:15 AM EDT Office Visit [facility] [address] [place] [address] Sumanth Wilson MD [address] [place] [address] documented as of this encounter Visit Diagnoses Diagnosis Type 2 diabetes mellitus with hyperglycemia, without long-term current use of insulin documented in this encounter Care Teams Intervention Manager Relationship Specialty Start Date End Date Sumanth Wilson MD [address] [place] [address] PCP - General Family Medicine 02/21/22 documented as of this encounter
--- OUTSIDE RECORDS SUMMARY | 2025-04-10 09:59 | XMS_ITS | Encounter Summary ---
Author Organization [facility] Address [address] [place] [address] Care Team Providers Care Help Desk Manager Name Role Phone Sumanth Wilson MD Primary Care Provider + Reason for Visit * Reason Onset Date Comments Med Management 03/08/2025 Encounter Details Date Type Department Care Team (Late st Contact Info) Description 03/08/2025 Telephone [facility] [address] [place] [address] Sumanth Wilson MD [address] [place] [address] Med Management Social History Tobacco Use Types Packs/Day Years [...] PM EDT documented as of this encounter Miscellaneous Notes * Telephone Encounter - Cynthia Sims MA - 03/13/2025 10:27 AM EST Spoke w/ pt he is going to continue all his Losartan until he runs out and then will switch to Benicar. Pt also said, he received a letter stating that Glyburide will no longer be on his formulary and itis recommended that he change to Glipizide or Glimepiride. He is requesting you to change this. * Telephone Encounter - Cynthia Sims MA - 03/13/2025 9:37 AM EST LM informing pt that his BP was not at goal and Dr. Wilson changed his Losartan to Benicar. Stop theold med and start this new one. Asked that pt please call us back and let us know he understood and received the message. * Telephone Encounter - Jenae Waterman RegSched Rep - 03/08/2025 11:37 AM EST Caller: Arnold Parham Relationship: Self Best call back number: [phone] Which medication are you concerned about: olmesartan (BENICAR) 40 MG tablet Who prescribed you this medication: Sumanth Wilson MD What are your concerns: PATIENT STATES HE JUST PICKED HIS MEDICATIONS UP AND NOTICED THIS WAS INCLUDED. STATES HE NEVER HAD THIS MEDICATION AND DOES NOT KNOW WHAT IT IS FOR. WOULD LIKE TO KNOW WHY ITWAS PRESCRIBED documented in this encounter Plan of Treatment Upcoming Encounters Date Type Department Care Team (Late st Contact Info) Description 08/31/2025 10:15 AM EDT Office Visit [facility] [address] [place] [address] Sumanth Wilson MD [address] [place] [address] documented as of this encounter Visit Diagnoses Diagnosis Type 2 diabetes mellitus with hyperglycemia, without long-term current use of insulin- Primary documented in this encounter Care Teams Help Desk Manager Relationship Specialty Start Date End Date Sumanth Wilson MD [address] [address] PCP - General Family Medicine 02/21/22 documented as of this encounter
--- OUTSIDE RECORDS SUMMARY | 2025-04-10 09:59 | XMS_ITS | Clinical Summary ---
Author Organization [facility] Address [address] [place] [address] Care Team Providers Care Economic Geographer Name Role Phone Sumanth Wilson MD Primary Care Provider + Allergies No known active allergies Medications metFORMIN (GLUCOPHAGE) 1000 MG tabletIndicatio ns:Type 2 diabetes mellitus with hyperglycemia, without long-term current use of insulin Take 1 tablet by mouth 2 (Two) Times a Day With Meals. 180 tablet 3 08/27/19 24 Active Additional Information Patient taking differently:1,000 mg Oral 2 Times Daily With Meals,Takes once daily, Reported on 03/03/2025 meloxicam (MOBIC) 15 MG tabletIndicatio ns:Chronic bilateral low back pain with bilateral sciatica Take 1 tablet by mouth Daily. 90 tablet 1 08/30/19 25 Active atorvastatin (LIPITOR) 10 MG tabletIndicatio ns:Type 2 diabetes mellitus with hyperglycemia, without long-term current use of insulin Take 1 tablet by mouth Daily. 90 tablet 3 12/03/19 25 Active carvedilol (COREG) 25 MG tabletIndicatio ns:Primary hypertension Take 1 tablet by mouth 2 (Two) Times a Day With Meals. 180 tablet 1 03/03/20 25 Active olmesartan (BENICAR) 40 MG tabletIndicatio ns:Primary hypertension Take 1 tablet by mouth Daily. 90 tablet 1 03/03/20 25 Active pioglitazone (Actos) 15 MG tabletIndicatio ns:Type 2 diabetes mellitus with hyperglycemia, without long-term current use of insulin Take 1 tablet by mouth Daily. 90 tablet 1 03/03/20 25 Active hydroCHLOROthia zide 25 MG tabletIndicatio ns:Primary hypertension Take 1 tablet by mouth Every Morning. 90 tablet 1 03/03/20 25 Active gabapentin (NEURONTIN) 100 MG capsuleIndicati ons:Chronic bilateral low back pain with bilateral sciatica Take 1 capsule by mouth 3 (Three) Times a Day. 90 capsule 5 03/03/20 25 Active empagliflozin (Jardiance) 25 MG tablet tabletIndicatio ns:Type 2 diabetes mellitus with hyperglycemia, without long-term current use of insulin Take 1 tablet by mouth Daily. 30 tablet 5 03/03/20 25 Active glipizide (GLUCOTROL XL) 10 MG 24 hr tabletIndicatio ns:Type 2 diabetes mellitus with hyperglycemia, without long-term current use of insulin Take 1 tablet by mouth Daily. 90 tablet 1 03/13/20 25 Active glyburide (DIAbeta) 5 MG tabletIndicatio ns:Type 2 diabetes mellitus with hyperglycemia, without long-term current use of insulin TAKE TWO (2) TABLETS BY MOUTH DAILY WITH BREAKFAST. 180 tablet 1 02/17/20 25 025 Discontinued Active Problems Problem Noted Date Diagnosed Date [...] there is a patient assistance program for [employer]. Diabetes will be reassessed in 6 months. [...] Encounters Date Type Department Care Team Description 03/08/2025 Telephone [facility] [address] [place] [address] Sumanth Wilson MD Med Management 03/03/2025 11:45 AM EST Office Visit [facility] [address] [place] [address] Sumanth Wilson MD Type 2 diabetes mellitus with hyperglycemia, without long-term current use of insulin (Primary Dx); Need for immunization against influenza; Primary hypertension; Chronic bilateral low back pain with bilateral sciatica; Colon cancer screening 03/03/2025 Travel 02/16/2025 Refill [facility] [address] [place] [address] Sumanth Wilson MD Type 2 diabetes mellitus with hyperglycemia, without long-term current use of insulin from Last 3 Months Immunizations Immunization Administration Dates Next Due Arexvy (RSV, Adults 60+ yrs) 12/25/2022 Fluzone (or Fluarix & Flulav al for VFC) >6mos 01/28/2019,02/07/2018 Fluzone High-Dose 65+YRS 03/03/2025,01/28/2024 Fluzone High-Dose 65+yrs 12/25/2022,01/11,01/14/2021,12/10 Pneumococcal Conjugate 13-Va [...] Mass Index 37.04 03/03/2025 11:32 AM EST Plan of Treatment Upcoming Encounters Date Type Department Care Team (Late st Contact Info) Description 08/31/2025 10:15 AM EDT Office Visit [facility] [address] [place] [address] Sumanth Wilson MD [address] [place], [place] [id number] Health Maintenance Due Date Last Done Comments COLOGUARD 11/02/1999 COLON CANCER SCREENING 5 YEAR SIGMOIDOSCOPY 11/02/1999 COLONOSCOPY 11/02/1999 CT COLONOGRAPHY 11/02/1999 FECAL OCCULT BLOOD TEST 11/02/1999 FIT Testing (1 year) 11/02/1999 DIABETIC FOOT EXAM 08/26/2023 08/25/2022, 0 08/25/2022, 08/25/2022 COVID-19 Vaccine (6 - Moderna risk 2023- season) 2024 01/28/2024, 01/13/2023, 02/04/2022, Additional history exists ANNUAL WELLNESS VISIT 08/29/2025 08/29/2024 , 08/29/2024, 02/26/2023 URINE MICROALBUMIN-CREATININE RATIO (uACR) 08/29/2025 08/29/2024 HEMOGLOBIN A1C 08/31/2025 03/03/2025, 11/12, 08/29/2024, Additional history exists DIABETIC EYE EXAM 01/16/2026 01/16/2025, , 01/15/2024, Additional history exists TDAP/TD VACCINES (2 - Td or Tdap) 02/25/2028 02/24/2018 COLORECTAL CANCER SCREENING 04/13/2036 Postponed from 11/02/1999 (Patient Refused) AAA SCREEN ONCE Completed 02/29/2020, 02/29/2020 Pneumococcal Vaccine 50+ Completed 022, 12/11/2019, 02/24/2018 ZOSTER VACCINE Completed 09/25/2022, 07/24/2022 INFLUENZA VACCINE Completed 03/03/2025, , 12/25/2022, Additional history exists HEPATITIS C SCREENING Discontinued Procedures Procedure Name Priority Date/Time Associated Diagnosis Comments POCT GLYCOSYLATED HEMOGLOBIN (HGB A1C) Routine 03/03/2025 11:42 AM EST Type 2 diabetes mellitus with hyperglycemia, without long-term current use of insulin SCANNED - LABS 02/10/2025 SCANNED - LABS 02/10/2025 SCANNED - LABS 02/10/2025 SCANNED - EYE EXAM 01/16/2025 POC ALBUMIN/CREATININE RATIO Routine 08/29/2024 4:02 PM EDT Type 2 diabetes mellitus with hyperglycemia, without long-term current use of insulin from Last 3 Months or Most Recently Relevant to Health Maintenance Results * (ABNORMAL) POC Glycosylated Hemoglobin (Hb A1C) (03/03/2025 11:42 AM EST) Hemoglobin A1C 7.5(A) 4.5 - 5.7 % [facility] Lot Number [id number] [facility] Expiration Date 09/09/2024 [facility] Blood 03/03/2025 11:4 2 AM EST us Sumanth Wilson MD POINT OF CARE TEST ORDER AIME Final Result [facility]
[address] [place] [address], * LABS SCANNED (02/10/2025) Only the most recent of3 resultswithin the time period is included. us Sumanth Wilson MD LAB BLOOD ORDERABLES Fin al Result * EYE EXAM SCANNED (01/16/2025) Anatomical Region Laterality Modality Other us Sumanth Wilson MD CHART REVIEW TABS Fin al Result * POC Albumin/Creatinine Ratio [...] Most Recently Relevant to Health Maintenance Insurance [facility] MEDICARE A & B Care Teams Economic Geographer Relationship Specialty Start Date End Date Sumanth Wilson MD [address] [place] [address] PCP - General Family Medicine 02/21/22
--- OUTSIDE RECORDS SUMMARY | 2025-04-10 09:59 | XMS_ITS | Encounter Summary ---
Author Organization [facility] Address [address] [place] [address] Care Team Providers Care Landscape Architecture Professor Name Role Phone Sumanth Wilson MD Primary Care Provider + Encounter Details Date Type Department Care Team (Late st Contact Info) Description 08/30/2024 Results Follow-Up [facility] [address] [facility] [place] [address] Sumanth Wilson MD [address] [facility] [place] [address] Social History Tobacco Use Types Packs/Day [...] Description 08/31/2025 10:15 AM EDT Office Visit [facility] [address] [facility] [place] [address] Sumanth Wilson MD [address] [place] [address] documented as of this encounter Visit Diagnoses Not on filedocumented in this encounter Care Teams Landscape Architecture Professor Relationship Specialty Start Date End Date Sumanth Wilson MD [address] [place] [address] PCP - General Family Medicine 02/21/22 documented as of this encounter
[2025-04-10 10:16] LABS: Hematocrit 49.1 % (42.0-52.0); Hemoglobin 17.2 g/dL (14.1-18.0)
[2025-04-10 12:28] LABS: Ferritin 110 ng/ml (17.9-464)
[2025-04-10 12:35] VITALS: BP 145/69; PULSE 74; RESP 18; O2SAT 96
[2025-04-10 12:50] VITALS: BP 154/81; PULSE 77; RESP 18; O2SAT 95
== END 2025-04-10 23:59 | disposition home or self-care (01) ==
PROVIDERS: PCP Family Medicine; Visit Provider Family Medicine
DX: E83.110 Hereditary hemochromatosis (principal)
CPT/HCPCS: 36415; 82728; 85014; 85018; 99195